=== PATIENT | male | born 1985 | race Caucasian/White ===

== ENCOUNTER 2018-02-27 23:52 | Inpatient (IN) | payer OTHER ==
[2018-02-28] MEDS ORDERED: NORMAL SALINE 1000 ML 1,000 ML IV ONE (00:02)
[2018-02-28] MEDS ORDERED: ETOMIDATE INJ/PF 20 MG/10 ML SDV IV ONE (00:02)
[2018-02-28] MEDS ORDERED: SUCCINYLCHOLINE CHLORIDE INJ 200 MG/10 ML VIAL IV ONE (00:02)
[2018-02-28] MEDS ORDERED: PROPOFOL 1,000 MG/100 ML INFUS..BTL IV PRN (00:02)
[2018-02-28] MEDS ORDERED: PROPOFOL 1,000 MG/100 ML INFUS..BTL IV ONE (00:04)
[2018-02-28 00:07] LABS: ABSOLUTE BASOPHILS # (AUTO) 0.1 10^3/uL (0.0-0.2); ABSOLUTE EOSINOPHILS # (AUTO) 0.1 10^3/uL (0.0-0.6); ABSOLUTE LYMPHOCYTES (AUTO) 1.9 10^3/uL (0.5-4.7); ABSOLUTE MONOCYTES (AUTO) 0.7 10^3/uL (0.1-1.4); ABSOLUTE NEUT (AUTO) 8.5 10^3/uL (1.7-8.2); BASOPHILS % (AUTO) 0.5 % (0-2); EOSINOPHILS % (AUTO) 0.9 % (0-6); HEMATOCRIT 41.2 % (37.9-51.0); LYMPHOCYTES % (AUTO) 17.1 % (13-45); MEAN CORPUSCULAR HEMOGLOBIN 31.7 pg (27.0-33.4); MEAN CORPUSCULAR VOLUME 93 fl (80-97); MONOCYTES % (AUTO) 5.9 % (3-13); PLATELET COUNT 252 10^3/uL (150-450); RED BLOOD COUNT 4.43 10^6/uL (4.35-5.55); RED CELL DISTRIBUTION WIDTH 14.5 % (11.5-14.0); SEGMENTED NEUTROPHILS % (AUTO) 75.6 % (42-78); TOTAL CELLS COUNTED % (AUTO) 100 %; WHITE BLOOD COUNT 11.2 10^3/uL (4.0-10.5)
[2018-02-28] MEDS ORDERED: MIDAZOLAM 2 MG/2 ML INJ ONE (00:14)
[2018-02-28 00:24] LABS: ALBUMIN 4.3 g/dL (3.5-5.0); ALKALINE PHOSPHATASE 42 U/L (38-126); ANION GAP 18 (5-19); ASPARTATE AMINO TRANSFERASE 67 U/L (17-59); BLOOD UREA NITROGEN 13 mg/dL (7-20); CALCIUM 8.7 mg/dL (8.4-10.2); CARBON DIOXIDE 24 mmol/L (22-30); CHLORIDE 104 mmol/L (98-107); GLUCOSE 139 mg/dL (75-110); POTASSIUM 4.4 mmol/L (3.6-5.0); SODIUM 145.5 mmol/L (137-145)
[2018-02-28 00:25] LABS: ACETAMINOPHEN 32 ug/mL (10-30); ALANINE AMINOTRANSFERASE 44 U/L (21-72); ALCOHOL 159 mg/dL (NONE DETECTED); BILIRUBIN,DIRECT 0.3 mg/dL (0.0-0.4); BILIRUBIN,TOTAL 0.4 mg/dL (0.2-1.3); TOTAL PROTEIN 7.1 g/dL (6.3-8.2)
[2018-02-28 00:26] LABS: SALICYLATE < 1.0 mg/dL (2.0-20.0)
--- NOTE | 2018-02-28 00:32 | ER Document Report ---
ED General - General Chief Complaint: Overdose Stated Complaint: UNRESPONSIVE Time Seen by Provider: 02/28/18 00:01 Notes: Patient is 32-year-old male who presents with complaint of overdose. He is found apneic at his house next to the pill bottle. He is prescribed Klonopin is some crust right powder around the bottle. The suspect he probably is a Klonopin overdose. They are unsure if this potential narcotic overdose as well this patient did have some pinpoint pupils. He was given at approximately 6 mg of Narcan total. This just caused him to wake up a little bit where he is moaning but otherwise is still requiring bag mask ventilation. He said he did vomit once in the ambulance. On arrival patient is poorly responsive and requiring bag mask ventilation. When we take away manual ventilation and place him on supplemental oxygen his oxygen saturation goes quickly into the 80s and therefore we continue manual ventilation. I am able to to get the patient wants to somewhat bone his name but otherwise he cannot tell me anything else and immediately closes his eyes and goes back to being unresponsive. Pupils on my initial exam are 4 and equal and reactive. - Related Data Allergies/Adverse Reactions: No Known Allergies Allergy (Verified 02/28/18 00:36) Past Medical History - Social History Smoking Status: Unknown if Ever Smoked Frequency of alcohol use: unknown Drug Abuse: Other - unknown Family History: Reviewed & Not Pertinent Review of Systems - Review of Systems -: Yes ROS unobtainable due to patient's medical condition - Patient is unresponsive. Physical Exam - Vital signs Vitals: Resp Pulse Ox 11 L 89 L 02/27/18 23:54 02/27/18 23:54 - Notes Notes: General Appearance: Unresponsive. I can get the patient to wake up just enough to barely mumble his name and then he goes back to being unresponsive. Vitals: reviewed, See vital signs table. Head: no swelling or tenderness to the head Eyes: PERRL, EOMI, Conjuctiva clear Mouth: No decreasd moisture Throat: No tonsillar inflammation, No airway obstruction, Neck: Supple, no neck tenderness, Lungs: No wheezing, No rales, No rhonci, No accessory muscle use, good air exchange bilaterally. Heart: Normal rate, Regular rythm, No murmur, no rub Abdomen: Normal BS, soft, No rigidity, No abdominal tenderness, No guarding, no rebound, no abdominal masses, no organomegaly Extremities: good pulses in all extremities, no swelling or tenderness in the extremities, no edema. Skin: warm, dry, appropriate color, no rash Neuro: Patient will wake with strong sternal rub just enough to barely tell me his name and then he goes back to being unresponsive. Pupils are equal and reactive. She will move his arms just slightly. He will move his legs just slightly. He is very sedated from his overdose. He is taking some breaths on his own but they are shallow Course - Re-evaluation Re-evalutation: 02/28/18 00:58 I advanced the ET tube to 25 cm at the lip. I have ordered a repeat chest x- ray and called x-ray to comes to the repeat chest x-ray. 02/28/18 01:26 Patient is appropriate positioning of ET tube. I suspect the patient is a Klonopin overdose based on his history. Tylenol level is only 32. I did order a repeat Tylenol level at 3 AM. I did inform the hospitalist of the repeat level that has been ordered. I did speak with hospitalist about admission for the patient's overdose. He agrees to evaluate the patient for admission. Patient otherwise is vitally stable on the vent. - Vital Signs Vital signs: Temp Pulse Resp BP Pulse Ox 18 133/79 H 100 02/28/18 00:12 02/28/18 00:12 02/28/18 00:12 - Laboratory Result Diagrams: 02/27/18 23:57 02/27/18 23:57 Laboratory results interpreted by me: 02/27/18 02/27/18 23:57 23:57 WBC 11.2 H RDW 14.5 H Absolute Neutrophils 8.5 H Sodium 145.5 H Creatinine 1.47 H Est GFR (Non-Af Amer) 55 L Glucose 139 H AST 67 H Salicylates < 1.0 L Acetaminophen 32 H - EKG Interpretation by Me Additional EKG results interpreted by me: 02/28/18 00:31 EKG is reviewed and interpreted by me. EKG shows sinus rhythm with a rate of [address] segment elevation or depression. No ischemic T-wave inversions. MO interval, QRS duration are within normal range. QTc interval is borderline. No old EKG available for comparison. Procedures - Intubation Orotracheal Airway evaluation: Normal anatomy Mallampati Classification: Class 1 Medications: Etomidate, Succinylcholine Intubation method: Orotracheal Blade type: Edgardo Blade size: 4 Equipment used: Glidescope ETT size: 7.5 ETT secured at (cm): 23 Breath Sounds after Intubation: Equal End tidal CO2 confirmed: Yes Critical Care Note - Critical Care Note Total time excluding time spent on procedures (mins): 40 Comments: Critical care time for this patient not including time spent on procedures approximately 40 minutes due to frequent re-evaluations, management of ventilator, management of sedation. Discharge - Discharge Clinical Impression: Overdose Qualifiers: Encounter type: initial encounter Injury intent: intentional self-harm Qualified Code(s): T50.902A - Poisoning by unspecified drugs, medicaments and biological substances, intentional self-harm, initial encounter Respiratory failure Qualifiers: Chronicity: acute Respiratory failure complication: hypoxia Qualified Code(s): J96.01 - Acute respiratory failure with hypoxia Condition: Serious Disposition: ADMITTED INPATIENT Admitting Provider: Hospitalist Unit Admitted: ICU
--- NOTE | 2018-02-28 00:42 | RADIOLOGY REPORT (SQ) ---
EXAM DESCRIPTION: XR CHEST 1 VIEW COMPLETED DATE/TME: 02/28/2018 00:13 CLINICAL HISTORY: post intubation COMPARISON: None. FINDINGS: Single frontal view of the chest. Endotracheal tube with tip at the level of the clavicles 8.5 cm above the patrica. Leads overlie the chest. NG tube with tip below the diaphragm. Cardiac mediastinal silhouette has normal size and contour. Low lung volumes. Bilateral perihilar interstitial opacities. No pneumothorax or large effusion. No acute osseous abnormalities. Upper abdominal soft tissues are unremarkable. IMPRESSION: 1. Endotracheal tube with tip 8.5 cm above the patrica just at the level of the clavicles. 2. Mild bilateral perihilar interstitial opacities.
[2018-02-28 01:42] LABS: APPEARANCE,URINE CLEAR; BILIRUBIN,URINE NEGATIVE (NEGATIVE); COLOR,URINE YELLOW; GLUCOSE, URINE 50 mg/dL (NEGATIVE); KETONES,URINE NEGATIVE (NEGATIVE); LEUKOCYTE ESTERASE,URINE NEGATIVE (NEGATIVE); NITRITE,URINE NEGATIVE (NEGATIVE); PROTEIN,URINE NEGATIVE (NEGATIVE); UROBILINOGEN,URINE NEGATIVE mg/dL (<2.0)
[2018-02-28 01:45] LABS: URINE AMPHETAMINES SCREEN NEGATIVE; URINE BARBITURATES SCREEN NEGATIVE; URINE BENZODIAZEPINES SCREEN NEGATIVE; URINE COCAINE SCREEN NEGATIVE; URINE MARIJUANA (THC) SCREEN NEGATIVE; URINE METHADONE SCREEN NEGATIVE; URINE PHENCYCLIDINE SCREEN NEGATIVE
--- NOTE | 2018-02-28 01:46 | RADIOLOGY REPORT (SQ) ---
EXAM DESCRIPTION: XR CHEST 1 VIEW COMPLETED DATE/TME: 02/28/2018 00:57 CLINICAL HISTORY: ET tube repositioning COMPARISON: 02/28/2018 FINDINGS: Single frontal view of the chest. Endotracheal tube with tip at the level of the clavicles 6 cm above the patrica. Leads overlie the chest. NG tube with tip below the diaphragm. Cardiomediastinal silhouette has normal size and contour. Low lung volumes. Bilateral perihilar interstitial opacities. No pneumothorax or large effusion. No acute osseous abnormalities. Upper abdominal soft tissues are unremarkable. IMPRESSION: 1. Endotracheal tube with tip 6.0 cm above the patrica. Otherwise stable appearance of the chest. Electronically signed by: Christian Ozuna 02/28/2018 12:45
[2018-02-28] MEDS: NORMAL SALINE 1000 ML 1,000 ML IV PRN ×3 (05:11→18:44)
[2018-02-28] MEDS: PROPOFOL 1,000 MG/100 ML INFUS..BTL IV PRN ×7 (06:53→23:51)
--- NOTE | 2018-02-28 08:04 | PDOC H&P ---
History of Present Illness Admission Date/PCP: 02/28/18 01:30 Patient complains of: Unresponsive. History of Present Illness: SHILOH VINSON is a 32 year old male with complaint of overdose. He is found apneic at his house next to the pill bottle. He is prescribed Klonopin is some crust right powder around the bottle, suspected cause of patients overdose. They are unsure if this potential narcotic overdose as well this patient did have some pinpoint pupils. He was given at approximately 6 mg of Narcan total. This just caused him to wake up a little bit where he is moaning but otherwise is still requiring bag mask ventilation. He said he did vomit once in the ambulance. On arrival patient is poorly responsive and requiring bag mask ventilation. When we take away manual ventilation and place him on supplemental oxygen his oxygen saturation goes quickly into the 80s and therefore we continue manual ventilation. Patient continues to become lethargic and unresponsive at which point patient was intubated in the ER. Past Medical History Medical History: None Psychiatric Medical History: Reports: Depression Social History Information Source: [facility] Records Lives with: Family Smoking Status: Former Smoker Frequency of Alcohol Use: Heavy Hx Recreational Drug Use: No Hx Prescription Drug Abuse: No Family History Family History: Reviewed & Not Pertinent Parental Family History Reviewed: Yes Children Family History Reviewed: Yes Sibling(s) Family History Reviewed.: Yes Medication/Allergy Allergies/Adverse Reactions: No Known Allergies Allergy (Verified 02/28/18 00:36) Review of Systems ROS unobtainable: Due to endotracheal tube, Due to mental status Physical Exam Vital Signs: Temp Pulse Resp BP Pulse Ox 97.6 F 78 12 117/46 L 99 02/28/18 05:07 02/28/18 05:07 02/28/18 06:13 02/28/18 06:13 02/28/18 06:13 Intake & Output 02/27/18 02/28/18 03/01/18 06:59 06:59 06:59 Intake Total 1000 Output Total 350 Balance 650 Weight 94 kg General appearance: PRESENT: no acute distress Exam: Unresponsive, intubated, sedated, in no acute distress Head exam: PRESENT: atraumatic Eye exam: PRESENT: PERRLA Mouth exam: PRESENT: dry mucosa Respiratory exam: PRESENT: clear to auscultation kelley, other - Ventilator Cardiovascular exam: PRESENT: +S1, +S2, tachycardia Pulses: PRESENT: +2 pedal pulses bilateral Neurological exam: PRESENT: altered, other - Sedated Skin exam: PRESENT: abrasion Results Laboratory Results: 02/28/18 05:19 Troponin I 0.014 Impressions: Chest X-Ray 02/28/18 00:57 IMPRESSION: 1. Endotracheal tube with tip 6.0 cm above the patrica. Otherwise stable appearance of the chest. Assessment & Plan - Diagnosis (1) Overdose Qualifiers: Encounter type: initial encounter Injury intent: intentional self-harm Qualified Code(s): T50.902A - Poisoning by unspecified drugs, medicaments and biological substances, intentional self-harm, initial encounter (2) Respiratory failure Qualifiers: Chronicity: acute Respiratory failure complication: hypoxia Qualified Code(s): J96.01 - Acute respiratory failure with hypoxia Plan: Currently intubated, sedated, resting in the intensive care unit. O2 50% with PEEP of 5 and tidal volume 450. On diprivan 50mcg/kg/min. Is making urine. Will continue to monitor with telemetry. Maintain IVF overnight. Repeat CBC, BMP in am. Consider poison control intervention if no improvement in patients condition. Wean off ventilator as tolerated. Will continue to monitor closely and adjust accordingly. - Time Critical Time spent with patient: 35 or more minutes Medications reviewed and adjusted accordingly: Yes Anticipated discharge: Home
--- NOTE | 2018-02-28 08:33 | EKG REPORT ---
SEVERITY:- BORDERLINE ECG - SINUS RHYTHM BORDERLINE PROLONGED QT INTERVAL : Confirmed by: Robb Bonner 28-Feb-2018 08:32:23
[2018-02-28] MEDS ORDERED: SUCCINYLCHOLINE CHLORIDE INJ 200 MG/10 ML VIAL ONE (09:14)
[2018-02-28] MEDS ORDERED: LORAZEPAM INJ 2 MG/1 ML VIAL ONE ×2 (10:51→14:32)
[2018-02-28] MEDS: ENOXAPARIN SODIUM INJ 40 MG/0.4 ML DISP.SYRIN SUBCUT SCH (10:55)
[2018-02-28] MEDS: LORAZEPAM INJ 2 MG/1 ML VIAL IV PRN ×2 (10:55→12:55)
[2018-02-28 11:27] LABS: ARTERIAL BLOOD BASE EXCESS -0.1 mmol/L; ARTERIAL BLOOD H2CO3 1.41 mmol/L (1.05-1.35); ARTERIAL BLOOD HCO3 25.8 mmol/L (20-26); ARTERIAL BLOOD O2 SATURATION 97.5 % (94-98); ARTERIAL BLOOD PCO2 46.7 mmHg (35-45); ARTERIAL BLOOD PH 7.36 (7.35-7.45); ARTERIAL BLOOD PO2 102.7 mmHg (80-100); ARTERIAL BLOOD TOTAL CO2 27.2 mmol/L (23-27)
[2018-02-28 11:30] LABS: ARTERIAL BLOOD FIO2 40%
[2018-02-28 11:51] LABS: INTERNATIONAL RATION (INR) 1.16; PARTIAL THROMBOPLASTIN TIME 26.1 SEC (23.5-35.8); PROTHROMBIN TIME 15.4 SEC (11.4-15.4)
[2018-02-28 12:07] LABS: ABSOLUTE BASOPHILS # (AUTO) 0.1 10^3/uL (0.0-0.2); ABSOLUTE EOSINOPHILS # (AUTO) 0.1 10^3/uL (0.0-0.6); ABSOLUTE LYMPHOCYTES (AUTO) 1.4 10^3/uL (0.5-4.7); ABSOLUTE MONOCYTES (AUTO) 0.6 10^3/uL (0.1-1.4); ABSOLUTE NEUT (AUTO) 9.8 10^3/uL (1.7-8.2); BASOPHILS % (AUTO) 0.4 % (0-2); EOSINOPHILS % (AUTO) 0.9 % (0-6); HEMATOCRIT 40.4 % (37.9-51.0); HEMOGLOBIN 13.9 g/dL (13.5-17.0); MEAN CORPUSCULAR HEMOGLOBIN 31.8 pg (27.0-33.4); MEAN CORPUSCULAR HGB CONC 34.3 g/dL (32.0-36.0); MEAN CORPUSCULAR VOLUME 93 fl (80-97); MONOCYTES % (AUTO) 4.7 % (3-13); PLATELET COUNT 220 10^3/uL (150-450); RED BLOOD COUNT 4.36 10^6/uL (4.35-5.55); RED CELL DISTRIBUTION WIDTH 14.2 % (11.5-14.0); TOTAL CELLS COUNTED % (AUTO) 100 %; WHITE BLOOD COUNT 11.9 10^3/uL (4.0-10.5)
[2018-02-28 12:16] LABS: TROPONIN I < 0.012 ng/mL
[2018-02-28 12:52] LABS: ALANINE AMINOTRANSFERASE 45 U/L (21-72); ALBUMIN 3.7 g/dL (3.5-5.0); ALKALINE PHOSPHATASE 47 U/L (38-126); ANION GAP 13 (5-19); ASPARTATE AMINO TRANSFERASE 63 U/L (17-59); BILIRUBIN,DIRECT 0.3 mg/dL (0.0-0.4); BILIRUBIN,TOTAL 0.6 mg/dL (0.2-1.3); BLOOD UREA NITROGEN 13 mg/dL (7-20); CALCIUM 8.5 mg/dL (8.4-10.2); CARBON DIOXIDE 24 mmol/L (22-30); CHLORIDE 107 mmol/L (98-107); CREATINE KINASE 1545 U/L (55-170); GLUCOSE 67 mg/dL (75-110); POTASSIUM 4.3 mmol/L (3.6-5.0); SODIUM 144.1 mmol/L (137-145); TOTAL PROTEIN 6.4 g/dL (6.3-8.2)
--- NOTE | 2018-02-28 14:25 | PSYCHOLOGICAL NOTE ---
Psych Note - Psych Note Psych Note: Reason for Consult: Suspected intentional Overdose SHILOH VINSON is a 32 year old male with complaint of overdose. He is found apneic at his house next to the pill bottle. He is prescribed Klonopin that had some crushed powder around the bottle, suspected cause of patients overdose. Patient is currently intubated. Please contact the behavioral health team when extubating for evaluation and possible IVC paperwork.
[2018-02-28] MEDS: ACETAMINOPHEN SOLN 325 MG/10.15 ML UDCUP NG PRN ×2 (14:59→18:44)
[2018-02-28] MEDS: LORAZEPAM 24 MG/ D5W 240 ML IV PRN ×3 (15:00→22:44)
[2018-02-28 15:58] LABS: APPEARANCE,URINE SLIGHTLY-CLOUDY; BILIRUBIN,URINE NEGATIVE (NEGATIVE); COLOR,URINE YELLOW; GLUCOSE, URINE NEGATIVE (NEGATIVE); KETONES,URINE 20 mg/dL (NEGATIVE); LEUKOCYTE ESTERASE,URINE NEGATIVE (NEGATIVE); NITRITE,URINE NEGATIVE (NEGATIVE); PROTEIN,URINE NEGATIVE (NEGATIVE); URINE SPECIFIC GRAVITY 1.024; UROBILINOGEN,URINE NEGATIVE mg/dL (<2.0)
[2018-02-28] MEDS ORDERED: CEFTRIAXONE 1 GM/D5W RTU 1 GM/50 ML RTUPB IV SCH (19:00)
[2018-02-28] MEDS: CEFTRIAXONE SODIUM 1,000 MG in NORMAL SALINE 50 ML IV SCH (20:54)
[2018-02-28] MEDS: PANTOPRAZOLE SODIUM 40 MG VIAL IV SCH (21:20)
[2018-02-28 22:47] LABS: ARTERIAL BLOOD BASE EXCESS 0.9 mmol/L; ARTERIAL BLOOD H2CO3 1.43 mmol/L (1.05-1.35); ARTERIAL BLOOD HCO3 26.8 mmol/L (20-26); ARTERIAL BLOOD O2 SATURATION 96.4 % (94-98); ARTERIAL BLOOD PCO2 47.6 mmHg (35-45); ARTERIAL BLOOD PH 7.37 (7.35-7.45); ARTERIAL BLOOD PO2 88.2 mmHg (80-100); ARTERIAL BLOOD TOTAL CO2 28.2 mmol/L (23-27)
[2018-02-28 22:51] LABS: ARTERIAL BLOOD FIO2 30%
[2018-03-01] MEDS: NORMAL SALINE 1000 ML 1,000 ML IV PRN ×4 (01:34→22:30)
[2018-03-01] MEDS: PROPOFOL 1,000 MG/100 ML INFUS..BTL IV PRN ×8 (01:35→23:54)
[2018-03-01] MEDS: LORAZEPAM 24 MG/ D5W 240 ML IV PRN ×6 (03:18→23:54)
[2018-03-01 04:20] LABS: ABSOLUTE EOSINOPHILS # (AUTO) 0.2 10^3/uL (0.0-0.6); ABSOLUTE LYMPHOCYTES (AUTO) 1.5 10^3/uL (0.5-4.7); ABSOLUTE MONOCYTES (AUTO) 0.4 10^3/uL (0.1-1.4); ABSOLUTE NEUT (AUTO) 7.5 10^3/uL (1.7-8.2); BASOPHILS % (AUTO) 0.5 % (0-2); EOSINOPHILS % (AUTO) 1.8 % (0-6); HEMATOCRIT 38.4 % (37.9-51.0); HEMOGLOBIN 13.4 g/dL (13.5-17.0); LYMPHOCYTES % (AUTO) 15.1 % (13-45); MEAN CORPUSCULAR HEMOGLOBIN 32.1 pg (27.0-33.4); MEAN CORPUSCULAR HGB CONC 34.9 g/dL (32.0-36.0); MEAN CORPUSCULAR VOLUME 92 fl (80-97); MONOCYTES % (AUTO) 4.4 % (3-13); PLATELET COUNT 199 10^3/uL (150-450); RED BLOOD COUNT 4.18 10^6/uL (4.35-5.55); RED CELL DISTRIBUTION WIDTH 14.2 % (11.5-14.0); SEGMENTED NEUTROPHILS % (AUTO) 78.2 % (42-78); TOTAL CELLS COUNTED % (AUTO) 100 %; WHITE BLOOD COUNT 9.6 10^3/uL (4.0-10.5)
[2018-03-01 04:44] LABS: ALANINE AMINOTRANSFERASE 31 U/L (21-72); ALBUMIN 3.1 g/dL (3.5-5.0); ALKALINE PHOSPHATASE 47 U/L (38-126); ANION GAP 8 (5-19); ASPARTATE AMINO TRANSFERASE 48 U/L (17-59); BILIRUBIN,DIRECT 0.3 mg/dL (0.0-0.4); BILIRUBIN,TOTAL 0.4 mg/dL (0.2-1.3); BLOOD UREA NITROGEN 9 mg/dL (7-20); CALCIUM 8.3 mg/dL (8.4-10.2); CARBON DIOXIDE 27 mmol/L (22-30); CHLORIDE 110 mmol/L (98-107); GLUCOSE 89 mg/dL (75-110); POTASSIUM 4.2 mmol/L (3.6-5.0); SODIUM 144.5 mmol/L (137-145); TOTAL PROTEIN 5.8 g/dL (6.3-8.2); TRIGLYCERIDES 110 mg/dL (<150)
[2018-03-01] MEDS: PANTOPRAZOLE SODIUM 40 MG VIAL IV SCH ×2 (09:23→21:14)
[2018-03-01] MEDS: ENOXAPARIN SODIUM INJ 40 MG/0.4 ML DISP.SYRIN SUBCUT SCH (09:24)
[2018-03-01] MEDS: ACETAMINOPHEN SOLN 325 MG/10.15 ML UDCUP NG PRN ×2 (10:39→14:42)
--- NOTE | 2018-03-01 12:09 | CONSULTATION REPORT E ---
Consultation Report NAME: SHILOH VINSON : 1985 AGE: 32Y DATE: 02/28/2018 610 A TO: JAKE COLE M.D. FROM: CAMI MARIE M.D. Requesting Physician REASON FOR CONSULTATION: The patient is a 32-year-old male who came in with altered mental status. When the patient was seen at his house, next to a pill bottle which contains Klonopin. Suspected patient overdose. The patient was given 6 mg of Narcan total, which seemed to wake up the patient. The patient had vomiting several times when the patient arrived in the Emergency Room. The patient was poorly responsive and requiring ambubagging. The patient was subsequently endotracheally intubated and mechanically ventilated in the Emergency Room. PAST MEDICAL HISTORY: Depression. SOCIAL HISTORY: Lives with family. Former heavy smoker. Heavy alcohol use. Denies illicit drug use. FAMILY HISTORY: Reviewed but not pertinent. ALLERGIES: No known drug allergies. REVIEW OF SYSTEMS: Unknown. The patient is sedated and mechanically ventilated. PHYSICAL EXAMINATION: GENERAL: The patient appeared sedated, afebrile, and not in apparent respiratory distress. VITAL SIGNS: Temperature 98.2 with a T-max of 101.1, heart rate of 93, respiration is 14, the saturation is 100% on 30% FiO2, SIMV rate of 14, tidal volume of 450 mL, pressure support of 10, PEEP of 5. EYES: No jaundice or pallor. EARS, NOSE, AND THROAT: No ear drainage. No nasal discharge. Endotracheal tube in place. CHEST AND LUNGS: No wheezing. No rhonchi. No coarse crackles. CARDIOVASCULAR: S1 and S2 distinct. Normal rate, regular rhythm. ABDOMEN: Flabby, positive bowel sounds, soft, nondistended, nontender. EXTREMITIES: No joint swelling and no cellulitis. ASSESSMENT: 1. Overdose, most likely Klonopin. 2. History of depression. PLAN/RECOMMENDATION: 1. We will continue invasive mechanical ventilation. 2. We will do an ABG today to determine whether we have to change the current ventilator settings. The current ventilator settings has a low tidal volume and a low ventilatory rate. I suspect patient may have respiratory acidosis but we will evaluate after the ABG and make further ventilator adjustments. 3. We will consider weaning of the patient tomorrow and hopefully determine whether the patient can blood work extubated or not. DICTATING PHYSICIAN: JAKE COLE MD,KAYY,MPH [id number] PHY#: [id number] ID: [id number] JOB#: [id number] ACCT: [id number] cc:JAKE COLE M.D. > [facility]
--- NOTE | 2018-03-01 13:55 | PDOC PROGRESS REPORT ---
Subjective Progress Note for:: 03/01/18 Subjective:: YOSI VINSON is a 32 year old male with complaint of overdose. He is found apneic at his house next to the pill bottle. He is prescribed Klonopin is some crust right powder around the bottle, suspected cause of patients overdose. They are unsure if this potential narcotic overdose as well this patient did have some pinpoint pupils. He was given at approximately 6 mg of Narcan total. This just caused him to wake up a little bit where he is moaning but otherwise is still requiring bag mask ventilation. He said he did vomit once in the ambulance. On arrival patient is poorly responsive and requiring bag mask ventilation. When we take away manual ventilation and place him on supplemental oxygen his oxygen saturation goes quickly into the 80s and therefore we continue manual ventilation. Patient continues to become lethargic and unresponsive at which point patient was intubated in the ER. Patient remains intubated and on mechanical ventilation. He has been seen by shoe packer as well as psychiatrist although follow-up evaluation will have to be done by psychiatrist once is awake. There is also a history of alcohol use as per mother and patient drinks every day hence he is on benzodiazepine continuous infusion. Reason For Visit: DRUG OD,INTUBATED Physical Exam Vital Signs: Temp Pulse Resp BP Pulse Ox 100.6 F H 107 H 21 H 119/95 H 91 L 03/01/18 13:43 03/01/18 13:43 03/01/18 13:43 03/01/18 13:43 03/01/18 13:43 Intake & Output 02/28/18 03/01/18 03/02/18 06:59 06:59 06:59 Intake Total 1077 4380 1646 Output Total 350 3785 1375 Balance 727 595 271 Weight 94 kg 95.9 kg General appearance: PRESENT: no acute distress, well-developed, well-nourished, other - Intubated Head exam: PRESENT: atraumatic, normocephalic Eye exam: PRESENT: conjunctiva pink, PERRLA. ABSENT: scleral icterus Ear exam: PRESENT: normal external ear exam Neck exam: ABSENT: carotid bruit, JVD, lymphadenopathy, thyromegaly Respiratory exam: PRESENT: clear to auscultation kelley. ABSENT: rales, rhonchi, wheezes Cardiovascular exam: PRESENT: RRR, +S1, +S2. ABSENT: diastolic murmur, rubs, systolic murmur Pulses: PRESENT: normal dorsalis pedis pul Vascular exam: PRESENT: normal capillary refill GI/Abdominal exam: PRESENT: normal bowel sounds, soft. ABSENT: distended, guarding, mass, organolmegaly, rebound, tenderness Rectal exam: PRESENT: deferred Extremities exam: ABSENT: calf tenderness, clubbing, pedal edema Neurological exam: PRESENT: other - Sedated. ABSENT: motor sensory deficit Psychiatric exam: PRESENT: other - Unable to evaluate. ABSENT: homicidal ideation, suicidal ideation Skin exam: PRESENT: dry, intact. ABSENT: cyanosis, rash Results Laboratory Results: 03/01/18 04:08 03/01/18 04:08 02/28/18 02/28/18 03/01/18 15:20 22:35 04:08 WBC 9.6 RBC 4.18 L Hgb 13.4 L Hct 38.4 MCV 92 MCH 32.1 MCHC 34.9 RDW 14.2 H Plt Count 199 Seg Neutrophils % 78.2 H Lymphocytes % 15.1 Monocytes % 4.4 Eosinophils % 1.8 Basophils % 0.5 Absolute Neutrophils 7.5 Absolute Lymphocytes 1.5 Absolute Monocytes 0.4 Absolute Eosinophils 0.2 Absolute Basophils 0.0 Carbonic Acid 1.43 H HCO3/H2CO3 Ratio 18:1 ABG pH 7.37 ABG pCO2 47.6 H ABG pO2 88.2 ABG HCO3 26.8 H ABG O2 Saturation 96.4 ABG Base Excess 0.9 FiO2 30% Sodium Potassium Chloride Carbon Dioxide Anion Gap BUN Creatinine Est GFR ( Amer) Est GFR (Non-Af Amer) Glucose Calcium Total Bilirubin AST ALT Alkaline Phosphatase Total Protein Albumin Triglycerides Urine Color YELLOW Urine Appearance SLIGHTLY-CLOUDY Urine pH 5.0 Ur Specific [place] 1.024 Urine Protein NEGATIVE Urine Glucose (UA) NEGATIVE Urine Ketones 20 H Urine Blood NEGATIVE Urine Nitrite NEGATIVE Ur Leukocyte Esterase NEGATIVE Urine WBC (Auto) 2 Urine RBC (Auto) 2 03/01/18 04:08 WBC RBC Hgb Hct MCV MCH MCHC RDW Plt Count Seg Neutrophils % Lymphocytes % Monocytes % Eosinophils % Basophils % Absolute Neutrophils Absolute Lymphocytes Absolute Monocytes Absolute Eosinophils Absolute Basophils Carbonic Acid HCO3/H2CO3 Ratio ABG pH ABG pCO2 ABG pO2 ABG HCO3 ABG O2 Saturation ABG Base Excess FiO2 Sodium 144.5 Potassium 4.2 Chloride 110 H Carbon Dioxide 27 Anion Gap 8 BUN 9 Creatinine 0.97 Est GFR ( Amer) > 60 Est GFR (Non-Af Amer) > 60 Glucose 89 Calcium 8.3 L Total Bilirubin 0.4 AST 48 ALT 31 Alkaline Phosphatase 47 Total Protein 5.8 L Albumin 3.1 L Triglycerides 110 Urine Color Urine Appearance Urine pH Ur Specific [place] Urine Protein Urine Glucose (UA) Urine Ketones Urine Blood Urine Nitrite Ur Leukocyte Esterase Urine WBC (Auto) Urine RBC (Auto) 02/28/18 02/28/18 02/28/18 05:19 11:10 11:10 Creatine Kinase 1545 H CK-MB (CK-2) 5.20 H Troponin I 0.014 < 0.012 02/28/18 12:00 Creatine Kinase CK-MB (CK-2) Troponin I Cancelled Impressions: Chest X-Ray 02/28/18 00:57 IMPRESSION: 1. Endotracheal tube with tip 6.0 cm above the patrica. Otherwise stable appearance of the chest. Assessment & Plan - Diagnosis (1) Overdose Qualifiers: Encounter type: subsequent encounter Injury intent: intentional self-harm Qualified Code(s): T50.902D - Poisoning by unspecified drugs, medicaments and biological substances, intentional self-harm, subsequent encounter Is this a current diagnosis for this admission?: Yes Plan: Secondary to Klonopin. Follow-up evaluation by psychiatry when patient improves (2) Respiratory failure Qualifiers: Chronicity: acute Respiratory failure complication: hypoxia Qualified Code(s): J96.01 - Acute respiratory failure with hypoxia Is this a current diagnosis for this admission?: Yes Plan: Continue with mechanical ventilation and wean off as tolerated. Continue with empiric antibiotics. Appreciate pulmonology input (3) ETOH abuse Is this a current diagnosis for this admission?: Yes Plan: Continue with benzodiazepine infusion. Hopefully by the time patient is ready to be extubated he is withdrawal symptoms or period Will have been over - Time Time Spent with patient: 15-24 minutes Medications reviewed and adjusted accordingly: Yes Anticipated discharge: Home Within: within 72 hours - Inpatient Certification Based on my medical assessment, after consideration of the patient's comorbidities, presenting symptoms, or acuity I expect that the services needed warrant INPATIENT care.: Yes Medical Necessity: Need for IV Antibiotics, Other - On mechanical ventilation
[2018-03-01] MEDS: CEFTRIAXONE SODIUM 1,000 MG in NORMAL SALINE 50 ML IV SCH (17:07)
[2018-03-01] MEDS ORDERED: LEVOFLOXACIN 500 MG/D5W RTU 500 MG/100 ML RTUPB IV SCH (22:00)
--- NOTE | 2018-03-01 23:11 | PROGRESS NOTE E ---
Progress Note NAME: SHILOH VINSON : 1985 AGE: 32Y DATE: 03/01/2018 ROOM: [facility] SUBJECTIVE: The patient is a 32-year-old male who came in with acute respiratory failure requiring invasive mechanical ventilation due to drug overdose. The patient was weaned off the sedation this morning but the patient became so agitated that sedation was resumed. The patient was a heavy alcohol drinking according to the patient's family. There was a temperature spike at 1 p.m. today to 100.6, current temperature is 98.4, it was 100 degrees Fahrenheit earlier. The patient is on IV ceftriaxone. Slightly increased yellowish endotracheal tube secretions this morning, according to the patient's nurse. Sputum culture again sent today. He had a sputum culture done yesterday showing a gram-positive cocci. The patient tolerated NG tube feeding. No vomiting, no diarrhea. OBJECTIVE: GENERAL: The patient is sedated, afebrile, not in apparent respiratory distress. VITAL SIGNS: Blood pressure 110/56, temperature of 98.4 with a T-max of 100.6, heart rate of 76, respirations 16, saturation 98% on FiO2 of 45%, SIMV rate of 14, tidal volume 450, pressure support is 14, and PEEP of 5, and FiO2 told to be titrated to keep saturations 91-94%. EYES: No jaundice or pallor. EARS, NOSE, AND THROAT: No ear drainage. No nasal discharge. HEAD AND NECK: No scalp swelling. Neck is supple. CHEST AND LUNGS: No wheezing, no rhonchi, no coarse crackles, no rhonchi noted. CARDIOVASCULAR: S1, S2 is distinct. Normal rate and regular rhythm. ABDOMEN: Flabby, positive bowel sounds., soft, nondistended, nontender. EXTREMITIES: No joint swelling, no cellulitis. LABORATORY DATA: CBC done today showed white count of 9.6, hemoglobin of 13.4, platelet count is 199, no bands noted. Chemistry done today showed sodium 134, potassium 4.2, chloride 110, CO2 is 27, BUN is 9, creatinine 0.97, glucose 89, and calcium is 8.3. Total bilirubin is 0.4, SGOT is 48, SGPT is 31. Total protein is 5.8 and albumin is 3.1. ASSESSMENT: 1. ACUTE RESPIRATORY FAILURE REQUIRING INVASIVE MECHANICAL VENTILATION. 2. DRUG OVERDOSE. 3. FEVER SPIKE TO 100 AND INCREASED ENDOTRACHEAL TUBE SECRETIONS, LOOKS LIKE MORE PURULENCE OR SUBJECTIVE OF POSSIBLE PULMONARY INFECTION OR PNEUMONIA THAT IS NOT DETECTED YET WITH THE CURRENT CHEST X-RAY. We will repeat the sputum culture again. Sputum culture is positive but organism is still to be identified. We will discontinue the Rocephin and we will start the patient on Levaquin which has a broader antimicrobial coverage. I do not think the patient needs an anti-pseudomonal coverage at this time, but we will closely watch the patient. PLAN/RECOMMENDATION: 1. Do a sputum culture tonight. 2. Discontinue the IV Rocephin and change to Levaquin IV 500 mg IV piggyback once daily. 3. We will continue to optimize ventilator support. 4. We will do spontaneous breathing trial again tomorrow after weaning off the sedation and once the patient is fully awake. DICTATING PHYSICIAN: JAKE COLE MD,KAYY,MPH [id number] PHY#: [id number] ID: [id number] JOB#: [id number] ACCT: [id number] cc: > MTDD
[2018-03-02] MEDS: PROPOFOL 1,000 MG/100 ML INFUS..BTL IV PRN ×7 (02:43→21:52)
[2018-03-02 04:25] LABS: ABSOLUTE BASOPHILS # (AUTO) 0.1 10^3/uL (0.0-0.2); ABSOLUTE EOSINOPHILS # (AUTO) 0.1 10^3/uL (0.0-0.6); ABSOLUTE MONOCYTES (AUTO) 0.7 10^3/uL (0.1-1.4); ABSOLUTE NEUT (AUTO) 9.3 10^3/uL (1.7-8.2); BASOPHILS % (AUTO) 0.6 % (0-2); EOSINOPHILS % (AUTO) 0.9 % (0-6); HEMATOCRIT 38.1 % (37.9-51.0); HEMOGLOBIN 13.3 g/dL (13.5-17.0); LYMPHOCYTES % (AUTO) 8.9 % (13-45); MEAN CORPUSCULAR HEMOGLOBIN 32.1 pg (27.0-33.4); MEAN CORPUSCULAR HGB CONC 34.9 g/dL (32.0-36.0); MEAN CORPUSCULAR VOLUME 92 fl (80-97); MONOCYTES % (AUTO) 5.9 % (3-13); PLATELET COUNT 209 10^3/uL (150-450); RED BLOOD COUNT 4.15 10^6/uL (4.35-5.55); RED CELL DISTRIBUTION WIDTH 14.3 % (11.5-14.0); SEGMENTED NEUTROPHILS % (AUTO) 83.7 % (42-78); TOTAL CELLS COUNTED % (AUTO) 100 %; WHITE BLOOD COUNT 11.1 10^3/uL (4.0-10.5)
[2018-03-02 04:36] LABS: ANION GAP 9 (5-19); BLOOD UREA NITROGEN 5 mg/dL (7-20); CALCIUM 8.3 mg/dL (8.4-10.2); CARBON DIOXIDE 27 mmol/L (22-30); CHLORIDE 110 mmol/L (98-107); GLUCOSE 101 mg/dL (75-110); SODIUM 145.7 mmol/L (137-145)
[2018-03-02] MEDS: LORAZEPAM 24 MG/ D5W 240 ML IV PRN ×5 (05:36→20:23)
[2018-03-02] MEDS: NORMAL SALINE 1000 ML 1,000 ML IV PRN ×2 (05:36→19:49)
--- NOTE | 2018-03-02 09:01 | RADIOLOGY REPORT (SQ) ---
EXAM DESCRIPTION: CHEST SINGLE VIEW COMPLETED DATE/TIME: 03/02/2018 6:31 am REASON FOR STUDY: on ventilator COMPARISON: 02/28/2018 NUMBER OF VIEWS: One view. TECHNIQUE: Single frontal radiographic image of the chest acquired. LIMITATIONS: None. FINDINGS: LUNGS AND PLEURA: Subsegmental atelectasis right lower lobe. No pneumothorax. MEDIASTINUM AND HEART: Stable heart size and mediastinal structures. SUPPORT DEVICES: Interval removal of endotracheal tube. NG tube position not significantly changed. BONY STRUCTURES: No acute findings. HARDWARE: None. OTHER: No other significant finding. IMPRESSION: Stable chest status postextubation. Reading location - IP/workstation name: [email or web address]
[2018-03-02] MEDS ORDERED: LEVOFLOXACIN 750 MG/D5W RTU 750 MG/150 ML RTUPB IV ONE (10:00)
[2018-03-02] MEDS: ENOXAPARIN SODIUM INJ 40 MG/0.4 ML DISP.SYRIN SUBCUT SCH (11:16)
[2018-03-02] MEDS: PANTOPRAZOLE SODIUM 40 MG VIAL IV SCH ×2 (11:16→21:30)
--- NOTE | 2018-03-02 18:15 | PDOC PROGRESS REPORT ---
Subjective Progress Note for:: 03/02/18 Subjective:: YOSI VINSON is a 32 year old male with complaint of overdose. He is found apneic at his house next to the pill bottle. He is prescribed Klonopin is some crust right powder around the bottle, suspected cause of patients overdose. They are unsure if this potential narcotic overdose as well this patient did have some pinpoint pupils. He was given at approximately 6 mg of Narcan total. This just caused him to wake up a little bit where he is moaning but otherwise is still requiring bag mask ventilation. He said he did vomit once in the ambulance. On arrival patient is poorly responsive and requiring bag mask ventilation. When we take away manual ventilation and place him on supplemental oxygen his oxygen saturation goes quickly into the 80s and therefore we continue manual ventilation. Patient continues to become lethargic and unresponsive at which point patient was intubated in the ER. Patient remains intubated and on mechanical ventilation. He has been seen by cardiac rehabilitation specialist as well as psychiatrist although follow-up evaluation will have to be done by psychiatrist once is awake. There is also a history of alcohol use as per mother and patient drinks every day hence he is on benzodiazepine continuous infusion. He remains fairly stable on mechanical ventilation and he still is unable to be weaned off the ventilator as he apparently had a lot of sedations and was not able to tolerate weaning trials. Reason For Visit: DRUG OD,INTUBATED Physical Exam Vital Signs: Temp Pulse Resp BP Pulse Ox 98.4 F 75 14 137/85 H 97 03/02/18 15:07 03/02/18 12:00 03/02/18 15:07 03/02/18 15:07 03/02/18 16:00 Intake & Output 03/01/18 03/02/18 03/03/18 06:59 06:59 06:59 Intake Total 4380 6085 927 Output Total 3785 4000 3550 Balance 595 5784 -2879 Weight 95.9 kg 96.9 kg 96.9 kg General appearance: PRESENT: no acute distress, well-developed, well-nourished, other - On mechanical ventilation Head exam: PRESENT: atraumatic, normocephalic Eye exam: PRESENT: conjunctiva pink, PERRLA. ABSENT: scleral icterus Ear exam: PRESENT: normal external ear exam Mouth exam: PRESENT: moist Neck exam: ABSENT: carotid bruit, JVD, lymphadenopathy, thyromegaly Respiratory exam: PRESENT: decreased breath sounds, rhonchi. ABSENT: rales, wheezes Cardiovascular exam: PRESENT: RRR, +S1, +S2. ABSENT: diastolic murmur, rubs, systolic murmur Pulses: PRESENT: normal dorsalis pedis pul Vascular exam: PRESENT: normal capillary refill GI/Abdominal exam: PRESENT: normal bowel sounds, soft. ABSENT: distended, guarding, mass, organolmegaly, rebound, tenderness Rectal exam: PRESENT: deferred Extremities exam: PRESENT: full ROM. ABSENT: calf tenderness, clubbing, pedal edema Neurological exam: PRESENT: other - Sedated. ABSENT: motor sensory deficit Psychiatric exam: PRESENT: other - Unable to evaluate Skin exam: PRESENT: dry, intact, warm. ABSENT: cyanosis, rash Results Laboratory Results: 03/02/18 03:56 03/02/18 03:56 03/02/18 03/02/18 03:56 03:56 WBC 11.1 H RBC 4.15 L Hgb 13.3 L Hct 38.1 MCV 92 MCH 32.1 MCHC 34.9 RDW 14.3 H Plt Count 209 Seg Neutrophils % 83.7 H Lymphocytes % 8.9 L Monocytes % 5.9 Eosinophils % 0.9 Basophils % 0.6 Absolute Neutrophils 9.3 H Absolute Lymphocytes 1.0 Absolute Monocytes 0.7 Absolute Eosinophils 0.1 Absolute Basophils 0.1 Sodium 145.7 H Potassium 4.0 Chloride 110 H Carbon Dioxide 27 Anion Gap 9 BUN 5 L Creatinine 0.89 Est GFR ( Amer) > 60 Est GFR (Non-Af Amer) > 60 Glucose 101 Calcium 8.3 L Magnesium 1.8 02/28/18 15:20 Tracheal Aspirate Gram Stain - Final 02/28/18 15:20 Tracheal Aspirate Sputum Culture - Final Staphylococcus Aureus Greatly Reduced Normal Sophie 02/28/18 15:20 Catheterized Urine Urine Culture - Final NO GROWTH 2 DAYS 02/28/18 02/28/18 02/28/18 05:19 11:10 11:10 Creatine Kinase 1545 H CK-MB (CK-2) 5.20 H Troponin I 0.014 < 0.012 02/28/18 12:00 Creatine Kinase CK-MB (CK-2) Troponin I Cancelled Impressions: Chest X-Ray 03/02/18 05:00 IMPRESSION: Stable chest status postextubation. Assessment & Plan - Diagnosis (1) Respiratory failure Qualifiers: Chronicity: acute Respiratory failure complication: hypoxia Qualified Code(s): J96.01 - Acute respiratory failure with hypoxia Is this a current diagnosis for this admission?: Yes Plan: Continue respiratory support and wean off as tolerated (2) Overdose Qualifiers: Encounter type: subsequent encounter Injury intent: intentional self-harm Qualified Code(s): T50.902D - Poisoning by unspecified drugs, medicaments and biological substances, intentional self-harm, subsequent encounter Is this a current diagnosis for this admission?: Yes Plan: Psych evaluation once stable (3) ETOH abuse Is this a current diagnosis for this admission?: Yes Plan: Continue benzodiazepine drip - Time Time Spent with patient: 15-24 minutes Medications reviewed and adjusted accordingly: Yes Anticipated discharge: Home Within: within 72 hours - Inpatient Certification Based on my medical assessment, after consideration of the patient's comorbidities, presenting symptoms, or acuity I expect that the services needed warrant INPATIENT care.: Yes Medical Necessity: Other - On mechanical ventilation
[2018-03-02] MEDS ORDERED: PIPERACILLIN/TAZOBACTAM 3.375 GM VIAL IV SCH (19:00)
--- NOTE | 2018-03-02 20:06 | PROGRESS NOTE E ---
Progress Note NAME: SHILOH VINSON : 1985 AGE: 32Y DATE: 03/02/2018 ROOM: [facility] SUBJECTIVE: Patient is a 32-year-old male who came in with acute respiratory failure, requiring invasive mechanical ventilation due to drug overdose. Patient spiked a temperature today to 100 degrees Fahrenheit. When patient was very agitated earlier today, patient desaturated to the 70's. The secretions were suctioned. RN said that the secretions are voluminous and purulent. They increased the tidal volume and Ambubagged the patient. This seemed to improve patient's oxygenation. There was no vomiting, no diarrhea noted. Patient was also noted to be very agitated and appeared to be requiring 2 IV sedatives, Ativan and propofol. RN claimed that the patient was just on one, propofol, when patient was agitated and has increased risk of self-extubating. When patient is on propofol and Ativan, patient looked better and calmer. OBJECTIVE: VITAL SIGNS: Currently, patient is sedated, afebrile, not in apparent respiratory distress, with a temperature of 100 degrees Fahrenheit, with a T-max of 100 degrees Fahrenheit. Heart rate is 69 beats per minute, blood pressure is 137/85, respiratory rate is 14, saturation is 97% on 30%. EYES: No jaundice or pallor. EARS, NOSE AND THROAT: No ear drainage. No nasal discharge. HEAD AND NECK: Orotracheal tube is in place. CHEST AND LUNGS: No wheezing, no rhonchi, no coarse crackles. CARDIOVASCULAR: S1, S2 distant. No murmur. Regular rate and rhythm. ABDOMEN: Flabby. Positive bowel sounds. Soft, nondistended. EXTREMITIES: No joint swelling or cellulitis. LABORATORY DATA: CBC done today showed white count of 11.1, hemoglobin of 13.3, hematocrit is 38.1 and platelet count 209,000. ABG done yesterday was 7.3, pH of 7.27, pCO2 of 47.6, pO2 of 88, saturation 96.4. Chemistry done today showed sodium of 145, potassium 4, chloride 110, CO2 of 37, BUN 5, creatinine 0.89. Calcium is 8.3 and magnesium is 1.8. Glucose is 101. Total protein is 5.8, albumin is 3.1. Sputum culture done yesterday showed gram-positive cocci in clusters, organisms still to be identified. Sputum culture done on February 26, 2018 showed Staphylococcus aureus. Chest x-ray done today showed increased infiltrate, right lung base, suspicious for pneumonic process, which is new. Antibiotics were changed from Rocephin to ceftriaxone, and from ceftriaxone to Levaquin yesterday. ASSESSMENT: 1. ACUTE RESPIRATORY FAILURE REQUIRING INVASIVE MECHANICAL VENTILATION. Patient is not ready to be extubated yet. 2. DELIRIUM TREMENS/ALCOHOL WITHDRAWAL. Already on IV Ativan and IV propofol. 3. PNEUMONIA, RIGHT LUNG BASE, WHICH IS NEW. 4. ALTERED MENTAL STATUS WITH DRUG OVERDOSE. 5. HISTORY OF ALCOHOL ABUSE. PLAN/RECOMMENDATIONS: 1. Will do a blood culture today. 2. Will start patient empirically with broad-spectrum antibiotics. 3. Will do CBC, chemistry and chest x-ray again tomorrow. 4. Change the ventilator settings to SIMV with a rate of 18, tidal volume of 500, pressure support of 10, PEEP of 5, FiO2 at 30% and titrate FiO2 to keep saturation 91% to 94%. Tidal volume should be set based on patient's ideal body weight, currently at 80 mL/kg ideal body weight. 5. Will perform ABG in 1 hour after the ventilator change. DICTATING PHYSICIAN: JAKE COLE MD,KAYY,MPH [id number] PHY#: [id number] ID: [id number] JOB#: [id number] ACCT: [id number] cc: > MTDD
[2018-03-02 20:12] LABS: ARTERIAL BLOOD BASE EXCESS 1.5 mmol/L; ARTERIAL BLOOD H2CO3 1.01 mmol/L (1.05-1.35); ARTERIAL BLOOD HCO3 24.4 mmol/L (20-26); ARTERIAL BLOOD O2 SATURATION 95.1 % (94-98); ARTERIAL BLOOD PCO2 33.4 mmHg (35-45); ARTERIAL BLOOD PH 7.48 (7.35-7.45); ARTERIAL BLOOD PO2 68.8 mmHg (80-100); ARTERIAL BLOOD TOTAL CO2 25.5 mmol/L (23-27)
[2018-03-02 20:24] LABS: ARTERIAL BLOOD FIO2 30%
[2018-03-02] MEDS: ACETAMINOPHEN SOLN 325 MG/10.15 ML UDCUP NG PRN (21:30)
[2018-03-02] MEDS: PIPERACILLIN SODIUM/TAZOBACTAM 3.375 GM in NORMAL SALINE 100 ML IV SCH (21:30)
[2018-03-03] MEDS: LORAZEPAM 24 MG/ D5W 240 ML IV PRN ×4 (00:26→16:23)
[2018-03-03] MEDS: PROPOFOL 1,000 MG/100 ML INFUS..BTL IV PRN ×7 (00:26→22:46)
[2018-03-03] MEDS: PIPERACILLIN SODIUM/TAZOBACTAM 3.375 GM in NORMAL SALINE 100 ML IV SCH ×4 (02:05→21:45)
[2018-03-03 04:32] LABS: ABSOLUTE EOSINOPHILS # (AUTO) 0.1 10^3/uL (0.0-0.6); ABSOLUTE MONOCYTES (AUTO) 0.8 10^3/uL (0.1-1.4); ABSOLUTE NEUT (AUTO) 9.3 10^3/uL (1.7-8.2); BASOPHILS % (AUTO) 0.4 % (0-2); EOSINOPHILS % (AUTO) 1.3 % (0-6); HEMATOCRIT 37.1 % (37.9-51.0); HEMOGLOBIN 12.8 g/dL (13.5-17.0); LYMPHOCYTES % (AUTO) 8.6 % (13-45); MEAN CORPUSCULAR HEMOGLOBIN 31.7 pg (27.0-33.4); MEAN CORPUSCULAR HGB CONC 34.5 g/dL (32.0-36.0); MEAN CORPUSCULAR VOLUME 92 fl (80-97); MONOCYTES % (AUTO) 6.9 % (3-13); PLATELET COUNT 211 10^3/uL (150-450); RED BLOOD COUNT 4.03 10^6/uL (4.35-5.55); RED CELL DISTRIBUTION WIDTH 14.1 % (11.5-14.0); SEGMENTED NEUTROPHILS % (AUTO) 82.8 % (42-78); TOTAL CELLS COUNTED % (AUTO) 100 %; WHITE BLOOD COUNT 11.2 10^3/uL (4.0-10.5)
[2018-03-03 04:49] LABS: ANION GAP 13 (5-19); BLOOD UREA NITROGEN 3 mg/dL (7-20); CALCIUM 8.2 mg/dL (8.4-10.2); CARBON DIOXIDE 24 mmol/L (22-30); CHLORIDE 110 mmol/L (98-107); GLUCOSE 110 mg/dL (75-110); POTASSIUM 3.7 mmol/L (3.6-5.0); SODIUM 147.2 mmol/L (137-145)
--- NOTE | 2018-03-03 08:53 | RADIOLOGY REPORT (SQ) ---
EXAM DESCRIPTION: CHEST SINGLE VIEW COMPLETED DATE/TIME: 03/03/2018 7:15 am REASON FOR STUDY: on ventilator COMPARISON: 03/02/2018. EXAM PARAMETERS: NUMBER OF VIEWS: One view. TECHNIQUE: Single frontal radiographic view of the chest acquired. RADIATION DOSE: NA LIMITATIONS: None. FINDINGS: LUNGS AND PLEURA: Right basilar density relatively unchanged. Possible small right pleura l effusion. Left lung clear. MEDIASTINUM AND HILAR STRUCTURES: No masses. Contour normal. HEART AND VASCULAR STRUCTURES: Heart normal in size. Normal vasculature. BONES: No acute findings. HARDWARE: Endotracheal tube with the tip at the level of T2. Difficult to visualize the distal nasog astric tube but probably in the stomach. OTHER: No other significant finding. IMPRESSION: STABLE APPEARANCE OF THE CHEST. LIFE LINES DESCRIBED. TECHNICAL DOCUMENTATION: JOB ID: [id number] [employer]- All Rights Reserved Reading location - IP/workstation name: [email or web address]
[2018-03-03] MEDS: PANTOPRAZOLE SODIUM 40 MG VIAL IV SCH (09:00)
[2018-03-03] MEDS: ENOXAPARIN SODIUM INJ 40 MG/0.4 ML DISP.SYRIN SUBCUT SCH (09:00)
--- NOTE | 2018-03-03 09:31 | PROGRESS NOTE E ---
Progress Note NAME: SHILOH VINSON : 1985 AGE: 32Y DATE: 03/03/2018 ROOM: [facility] SUBJECTIVE: The patient is lying in bed. The patient remains intubated, sedated. The patient has done very poor with his weaning trials. It appears that the patient is alcohol dependent as well as benzodiazepine dependent and is 3 days into his withdrawal. The patient's agitation has increased and I have actually had to increase his Ativan to 6 mg an hour; however, the patient has been afebrile. His blood pressure has been in a good range. The patient is unable to voice any specific concerns at this time. REVIEW OF SYSTEMS: Unobtainable given the patient's intubation. MEDICATIONS: Medications have been reviewed. OBJECTIVE: GENERAL: The patient is a 33-year-old male who is intubated and sedated, does not appear to be distressed. VITAL SIGNS: Temperature is 97.5, pulse 65, respirations 19, blood pressure is 118/74, oxygen saturation is 98% on 30% FiO2. SKIN: Warm and dry. No rash. She is not diaphoretic. HEENT: Pupils equal, round, and reactive to light and accommodation. Conjunctiva is pink. There is no evidence of JVP. CARDIOVASCULAR SYSTEM: Heart is regular. There is no murmur or rub. CHEST: Clear, symmetrical, mechanical. ABDOMEN: Soft. Bowel sounds present. EXTREMITIES: No clubbing, cyanosis, edema. PSYCHIATRIC: Unable to assess. DIAGNOSTICS: Lab values are as follows: Hematology obtained on 03/03/2018: WBC is 11.3, hemoglobin is 12.8, hematocrit is 37.1, platelet count is 211,000. Chemistry obtained on 03/03/2018: Sodium is 147.2, potassium 3.7, chloride is 110, carbon dioxide 24, BUN 3, creatinine is 0.74, glucose 110, calcium is 8.2, magnesium is 1.7. Chest x-ray obtained on 03/03/2018 reveals stable appearance of the chest. ET tube appears to be at a level of T1. Right basilar density is noted. IMPRESSION AND PLAN: 1. POLYPHARMACY OVERDOSE, UNCERTAIN OF THE EXACT MECHANISM. The patient reportedly was found with a bottle of Klonopin, but white residue was noted all over the bottle. The patient was positive for opiates on presentation and was given 6 mg of Narcan with minimal improvement of symptoms. The patient's pupils were completely pinpoint. Will continue to monitor and follow. The patient is going to be followed by Psych. 2. ACUTE HYPOXEMIC RESPIRATORY FAILURE SECONDARY TO NUMBER 1. The patient is on minimal vent settings. Will follow. 3. ALCOHOL DEPENDENCY, CONTINUOUS. Will continue benzodiazepine drip and additionally will coverage the patient with B12 vitamins and follow. 4. BENZODIAZEPINE DEPENDENCY, CONTINUOUS. Will continue benzodiazepine drip. 5. RIGHT LOWER LEG PNEUMONIA, MOST LIKELY AN ASPIRATION DUE TO THE PATIENT'S OVERDOSE STATE. Continue Zosyn and follow. 6. HYPERNATREMIA. The patient is not receiving free water. Will increase the patient's free water flushes with his feedings and follow. DISPOSITION: The patient is a FULL CODE. Pending patient's symptomatology and diagnostic findings, will re-evaluate in the a.m. Time spent on this critical care note including assessment, plan, physical examination, patient education, review of records is 35 minutes. DICTATING PHYSICIAN: JOHN GIVENS NP [id number] PHY#: [id number] ID: [id number] JOB#: [id number] ACCT: [id number] cc: >
--- NOTE | 2018-03-03 11:05 | PSYCHOLOGICAL NOTE ---
Psych Note - Psych Note Psych Note: This clinician spoke to the Retail Project Merchandiser at 9:50am. Patient is still intubated. Please contact the Psych Department when patient is exturbated. Update: 4:20pm: This Clinician spoke to Nurse Mcknight, patient is still intubated. Please contact the Psych Department when patient is exturated.
[2018-03-03] MEDS ORDERED: NORMAL SALINE 1000 ML 1,000 ML with POTASSIUM CHLORIDE 20 MEQ, MAGNESIUM SULFATE 8 MEQ,... IV SCH ×5 (12:00)
[2018-03-03] MEDS ORDERED: NORMAL SALINE 1000 ML 1,000 ML with POTASSIUM CHLORIDE 20 MEQ, MAGNESIUM SULFATE 8 MEQ,... IV ONE ×6 (12:00)
[2018-03-03] MEDS: ACETAMINOPHEN SOLN 325 MG/10.15 ML UDCUP NG PRN (13:51)
[2018-03-03] MEDS ORDERED: VANCOMYCIN HCL INJ 1000 MG VIAL IV SCH (14:30)
--- NOTE | 2018-03-03 15:26 | RADIOLOGY REPORT (SQ) ---
EXAM DESCRIPTION: CHEST SINGLE VIEW COMPLETED DATE/TIME: 03/03/2018 3:13 pm REASON FOR STUDY: after endotracheal tube advanced by 2 cm COMPARISON: 03/03/2018 EXAM PARAMETERS: NUMBER OF VIEWS: One view. TECHNIQUE: Single frontal radiographic view of the chest acquired. RADIATION DOSE: NA LIMITATIONS: None. FINDINGS: LUNGS AND PLEURA: The previously described right basilar density shows interval improvemen t with decreasing confluence. Residual changes are identified. Again there is some blunting of the right costophrenic angle which I cannot exclude is a tiny right pleural effusion. The left lung jessica ins clear. MEDIASTINUM AND HILAR STRUCTURES: No masses. Contour normal. HEART AND VASCULAR STRUCTURES: The configuration of the heart mediastinal structures is unchanged. BONES: No acute findings. HARDWARE: Endotracheal tube is identified with its tip the level of the thoracic inlet. NG tube is s een in course to the abdomen without its tip being identified on this film. OTHER: No other significant finding. IMPRESSION: Endotracheal tube with its tip at the level of the thoracic inlet. Interval improvement in the right basilar density. Other findings as noted above TECHNICAL DOCUMENTATION: JOB ID: [id number] [employer]- All Rights Reserved Reading location - IP/workstation name: [email or web address]
[2018-03-03] MEDS: VANCOMYCIN HCL 1,500 MG in DEXTROSE 5%-WATER 250 ML IV SCH (16:22)
--- NOTE | 2018-03-03 16:41 | PROGRESS NOTE E ---
Progress Note NAME: SHILOH VINSON : 1985 AGE: 32Y DATE: 03/03/2018 ROOM: [facility] SUBJECTIVE: The patient is a 32-year-old male who came in in acute respiratory failure requiring invasive mechanical ventilation and due to drug overdose. The patient has been febrile over the last 24 hours with a temperature of 100.8, had some increased endotracheal tube secretions, able to wean off the sedation, both Ativan and propofol for about an hour or so. The patient is since able to tolerate waking up, unable to tolerate a spontaneous breathing trial at 2 breaths per minute using a FMV of 2. He has increasing endotracheal tube secretions, yellow. Sputum culture done 2 days ago showed gram-negative rods and MRSA. The patient is currently on IV Zosyn. Repeat cultures were done yesterday, and the results are pending. The patient appeared to be still sedated, even off the Ativan and IV propofol for about 2 hours, has a slight fever, not in apparent respiratory distress with a temperature of 100.8 with a temperature maximum of 100.8. OBJECTIVE: VITAL SIGNS: Temperature is 100.8 and pulse rate of 87, blood pressure is 131/79, and the respiration is 18. Saturation is 93% on a FMV rate of 2. Two breaths during his spontaneous breathing trial. Tidal volume of 500. Pressure support of 10/5 and PEEP of 5 on FIO2 35%. EYES: No jaundice or pallor. EARS, NOSE, AND THROAT: No ear drainage. Orotracheal tube is in place. NG tube is in place. CHEST AND LUNGS: No wheezing. No rhonchi. No coarse crackles. CARDIOVASCULAR: S1, S2 are distinct. No murmur, gallop, or rub. ABDOMEN: Flabby, positive bowel sounds, soft, nondistended, nontender. EXTREMITIES: No joint swelling or cellulitis. LABORATORY: CBC done today showed a white count of 11.2, hemoglobin 12.8, hematocrit is 37.1, platelet count is 211,000. Chemistry done today showed sodium 137, potassium 3.7, chloride 111, carbon dioxide 24, BUN 3, and creatinine 7.74. Calcium is 8.2 and glucose 110. Magnesium is 1.7. Again, sputum culture done March 01, 2018, showed MRSA and gram-negative rods, but the MRSA is sensitive to ciprofloxacin and vancomycin. ASSESSMENT: 1. ACUTE RESPIRATORY FAILURE REQUIRING INVASIVE MECHANICAL VENTILATION. AGAIN, THE PATIENT HAS NOT TOLERATED BEING EXTUBATED YET, HAS INCREASED ENDOTRACHEAL TUBE SECRETIONS. 2. FEVER, NEW, WHICH IS PROBABLY DUE TO RIGHT LOWER LOBE PNEUMONIA AND A NEW INFILTRATE IN THE RIGHT LOWER LOBE AND SPUTUM CULTURE POSITIVE FOR MRSA AND GRAM-NEGATIVE RODS AND STAPH AUREUS. 3. PNEUMONIA, RIGHT LOWER LOBE, MRSA AND GRAM-NEGATIVE RODS. CURRENT COVERAGE ON IV ZOSYN AND STARTED IV VANCOMYCIN TODAY. PLAN: 1. We will continue the IV Zosyn. Agree with the discontinuation of IV Levaquin. 2. We will start patient on IV vancomycin today. 3. We will continue to optimize ventilator support. We will consider extubation once the secretions go down and the pneumonia is showing signs of improvement. 4. We will continue IV propofol or IV Ativan to keep patient lightly sedated. We will consider putting the patient on benzodiazepine when we are ready to extubate the patient. Currently, the alcohol withdrawal seems to be not severe. The patient is non-tachycardic, non-diaphoretic, and not agitated. Alcohol withdrawal may be resolving. DICTATING PHYSICIAN: JAKE COLE MD,KAYY,MPH [id number] [id number] PHY#: [id number] ID: [id number] JOB#: [id number] ACCT: [id number] cc:JAKE COLE M.D. > MTDD
[2018-03-04] MEDS: LORAZEPAM 24 MG/ D5W 240 ML IV PRN (01:04)
[2018-03-04] MEDS: PROPOFOL 1,000 MG/100 ML INFUS..BTL IV PRN ×2 (01:04→04:45)
[2018-03-04] MEDS: VANCOMYCIN HCL 1,500 MG in DEXTROSE 5%-WATER 250 ML IV SCH ×3 (01:08→17:10)
[2018-03-04] MEDS: PIPERACILLIN SODIUM/TAZOBACTAM 3.375 GM in NORMAL SALINE 100 ML IV SCH ×4 (03:23→21:12)
[2018-03-04 04:47] LABS: HEMATOCRIT 37.5 % (37.9-51.0); HEMOGLOBIN 13.2 g/dL (13.5-17.0); MEAN CORPUSCULAR HEMOGLOBIN 32.1 pg (27.0-33.4); MEAN CORPUSCULAR HGB CONC 35.2 g/dL (32.0-36.0); MEAN CORPUSCULAR VOLUME 91 fl (80-97); PLATELET COUNT 232 10^3/uL (150-450); RED BLOOD COUNT 4.12 10^6/uL (4.35-5.55); RED CELL DISTRIBUTION WIDTH 14.5 % (11.5-14.0); WHITE BLOOD COUNT 9.4 10^3/uL (4.0-10.5)
[2018-03-04 05:08] LABS: ALANINE AMINOTRANSFERASE 40 U/L (21-72); ALBUMIN 2.8 g/dL (3.5-5.0); ALKALINE PHOSPHATASE 63 U/L (38-126); ANION GAP 11 (5-19); ASPARTATE AMINO TRANSFERASE 30 U/L (17-59); BILIRUBIN,DIRECT 0.3 mg/dL (0.0-0.4); BILIRUBIN,TOTAL 0.5 mg/dL (0.2-1.3); BLOOD UREA NITROGEN 3 mg/dL (7-20); CALCIUM 8.2 mg/dL (8.4-10.2); CARBON DIOXIDE 24 mmol/L (22-30); CHLORIDE 110 mmol/L (98-107); CREATINE KINASE 215 U/L (55-170); GLUCOSE 137 mg/dL (75-110); POTASSIUM 3.4 mmol/L (3.6-5.0); TOTAL PROTEIN 5.6 g/dL (6.3-8.2); TRIGLYCERIDES 104 mg/dL (<150)
--- NOTE | 2018-03-04 08:36 | PROGRESS NOTE E ---
Progress Note NAME: SHILOH VINSON : 1985 AGE: 32Y DATE: 03/04/2018 ROOM: [facility] SUBJECTIVE: The patient is lying in bed. The patient's sedation has been off for about 30 minutes. The patient will awaken. Will cough on command but does easily get into coughing fits with these. He desatted into the 80s even on 100% FiO2; however, the patient is very easily sensitive to the suctioning. Chest x-ray yesterday evening did show some improved aeration. The patient was added vancomycin yesterday. He was already on Zosyn to cover an aspiration given the patient had bibasilar pneumonia on presentation. The patient is unable to voice any concerns at this time. The patient's mother is present at the bedside active in the patient's care. She is aware of the general plan of care. If the patient is indeed extubated today, will have him evaluated by Mental Health at that point and further decision-making as per Pulmonology and Mental Health. BRIEF HISTORY: The patient is a 33-year-old male that presented to the emergency department after being found with a bottle of Klonopin and unknown powdery substance on it. The patient's toxicology screen interestingly enough was positive for opiates but negative for benzodiazepines. The patient did have a serum alcohol level of 159, acetaminophen level of 32. The patient was noted to have bibasilar pneumonia. Was covered with Zosyn and the patient's sputum culture on 02/28/2018 grew out a Staphylococcus aureus; however, repeat culture on 03/01/2018 grew out an Enterobacter as well as an MRSA. The patient has been followed by Pulmonology and Mental Health will evaluate once extubated. REVIEW OF SYSTEMS: Unobtainable. MEDICATIONS: Medications reviewed. OBJECTIVE: GENERAL: The patient is a 33-year-old male who is intubated. His sedation is off. He will follow some basic commands. He does not appear to be distressed. VITAL SIGNS: As follows: Temperature is 97.0, pulse 64, respirations 22, blood pressure is 148/96, oxygen saturation is 100% on 30% FiO2. SKIN: Warm and dry. No rash. He is not diaphoretic. HEENT: Pupils are reactive. Conjunctiva is pink. There is no evidence of JVP. CARDIOVASCULAR SYSTEM: Heart is regular. No rub. CHEST: Clear, symmetrical, unlabored, mechanical. ABDOMEN: Soft, nontender. EXTREMITIES: No clubbing, cyanosis, edema. All 4 extremities are presently warm to the touch. PSYCHIATRIC: Unable to fully assess at this time. DIAGNOSTICS: Lab values are as follows: Hematology obtained on 03/04/2018: WBC is 9.4, hemoglobin is 13.2, hematocrit is 37.5, platelet count is 232,000. Chemistry obtained on 03/04/2018: Sodium is 145, potassium 3.4, chloride is 110, carbon dioxide 24, BUN 3, creatinine is 0.78, glucose 137, calcium is 8.2. AST 30, ALT 40, alkaline phosphatase 63. CK is 215. Total protein .6, albumin 2.8. Triglycerides are 1.4. Sputum culture obtained on 03/01/2018 revealed Enterobacter and MRSA. Repeat sputum obtained on 03/02/2018 is pending. IMPRESSION AND PLAN: 1. POLYPHARMACY OVERDOSE, UNCERTAIN OF THE EXACT MECHANISM. The patient was reportedly found with a bottle of Klonopin with some white residue noted on the bottle. The patient was positive for opiates as well as acetaminophen, alcohol. On presentation the patient was given 6 mg of Narcan without significant improvement Pupils were completely pinpoint and fixed. The patient was unable to protect his airway and was subsequently intubated. Patient will be evaluated again by Psych. 2. ACUTE HYPOXEMIC RESPIRATORY FAILURE SECONDARY TO NUMBER 1. The patient is on minimal vent settings. Do expect extubation this afternoon. 3. ALCOHOL DEPENDENCY, CONTINUOUS. Will go ahead and schedule benzodiazepines at this point. The patient is being covered with B vitamins as well. The patient had an alcohol level on presentation. Has no merle evidence of DTs at this point. Will monitor cautiously. 4. BENZODIAZEPINE DEPENDENCY, CONTINUOUS. Interestingly, the patient's benzodiazepines were negative on presentation. Will monitor. 5. BIBASILAR PNEUMONIA. Culture now positive for MRSA. The patient's initial presentation just revealed a Staph. Vancomycin was added yesterday to Zosyn. 6. HYPERNATREMIA. This was corrected with increased free water, flushes. Will resume a regular diet once the patient is extubated. DISPOSITION: The patient is a FULL CODE. Pending patient's symptomatology and diagnostic findings as well as specialty input, will re-evaluate as needed. ADDENDUM: Patient was extubated without difficulty or hypoxia. Tolerating nasal canula. Nursing to notify Psych for IVC. Time spent on this critical care visit including assessment, plan, physical examination, patient education, review of records and family discussion is 35 minutes. DICTATING PHYSICIAN: JHON GIVENS NP [id number] PHY#: [id number] ID: [id number] JOB#: [id number] ACCT: [id number] cc: > MTDD
[2018-03-04] MEDS ORDERED: LORAZEPAM 1 MG TABLET (TAPER DOSING) PO SCH (09:00)
[2018-03-04] MEDS ORDERED: LORAZEPAM INJ 2 MG/ML VIAL (4 MG PRN DOSE) IV (09:00)
[2018-03-04] MEDS: ENOXAPARIN SODIUM INJ 40 MG/0.4 ML DISP.SYRIN SUBCUT SCH (09:07)
[2018-03-04] MEDS: LORAZEPAM INJ 2 MG/1 ML VIAL (TAPER DOSING) IV SCH ×3 (09:07→21:11)
[2018-03-04] MEDS: FOLIC ACID 1 MG TABLET PO SCH (09:08)
[2018-03-04 09:12] LABS: ARTERIAL BLOOD BASE EXCESS 3.4 mmol/L; ARTERIAL BLOOD H2CO3 1.16 mmol/L (1.05-1.35); ARTERIAL BLOOD HCO3 27.2 mmol/L (20-26); ARTERIAL BLOOD O2 SATURATION 95.3 % (94-98); ARTERIAL BLOOD PCO2 38.7 mmHg (35-45); ARTERIAL BLOOD PH 7.47 (7.35-7.45); ARTERIAL BLOOD TOTAL CO2 28.4 mmol/L (23-27)
[2018-03-04 09:13] LABS: ARTERIAL BLOOD FIO2 30%
[2018-03-04] MEDS ORDERED: POTASSIUM CHLORIDE 20 MEQ/15 ML UDCUP PO ONE (09:30)
[2018-03-04] MEDS ORDERED: LORAZEPAM 1 MG TABLET PO SCH (12:00)
[2018-03-04] MEDS: NORMAL SALINE 1000 ML 1,000 ML with POTASSIUM CHLORIDE 20 MEQ, MAGNESIUM SULFATE 8 MEQ,... IV SCH ×5 (12:12)
--- NOTE | 2018-03-04 12:41 | PROGRESS NOTE E ---
Progress Note NAME: SHILOH VINSON : 1985 AGE: 32Y DATE: 03/04/2018 ROOM: [facility] SUBJECTIVE: The patient is a 32-year-old male who came in with acute respiratory failure requiring invasive mechanical ventilation due to drug overdose reportedly when he came in. The patient has no fever over the last 24 hours. Has decreased endotracheal secretions. Wean off sedation this morning, both Ativan and Versed at 6:00. Appeared to be doing well. Had a spontaneous breathing trial about an hour ago and on pressure support of 10/5 and patient appeared to be tolerating it. His ABG after an hour showed pH of 7.47, PCO2 of 13.7, CO2 and oxygen saturation 95%. No vomiting and no diarrhea overnight. Patient is intubated subsequently. OBJECTIVE: GENERAL: Patient is awake and afebrile and calm. VITAL SIGNS: Temperature is 97.7 with a Tmax of 99.5, blood pressure is 132/76, saturations is 95% on FiO2 of 30% FMV rate of 18. Tidal volume of 500. Pressure support of 10 and PEEP of 5. EYES: No jaundice or pallor. EARS, NOSE, AND THROAT: No ear drainage. Orotracheal tube is in place. NG tube is in place. CHEST AND LUNGS: No wheezing. No rhonchi. No coarse crackles. CARDIOVASCULAR: S1, S2 are distinct. No murmur, gallop, or rub. ABDOMEN: Flabby, positive bowel sounds, soft, nondistended, nontender. EXTREMITIES: No joint swelling or cellulitis. ASSESSMENT: 1. ACUTE RESPIRATORY FAILURE REQUIRING INVASIVE MECHANICAL VENTILATION. 2. PNEUMONIA, MRSA, RIGHT LOWER LOBE. SPUTUM CULTURE POSITIVE FOR MRSA AND ENTEROBACTER, SUSCEPTIBLE TO TETRACYCLINE. 3. HISTORY OF DRUG OVERDOSE. 4. HISTORY OF ALCOHOL ABUSE. PLAN AND RECOMMENDATION: 1. Recommend continuing vancomycin for now, IV and Zosyn IV. will continue the IV Zosyn. 2. Patient will be able to go home on tetracycline orally. 3. Agreed with alcohol withdrawal protocol. Consider ativan 2 mg IV instead of 4 mg IV. DICTATING PHYSICIAN: JAKE COLE MD,KAYY,MPH [id number] PHY#: [id number] ID: [id number] JOB#: [id number] ACCT: [id number] cc: > HARPREETD
--- NOTE | 2018-03-04 15:42 | PSYCHOLOGICAL NOTE ---
Psych Note - Psych Note Psych Note: Reason for Consult:possible overdose Consent for permissions: Mumtaz, mother at patient's bedside, PT ARRIVED VIA EMS D/T POSSIBLE OVERDOSE. REPORT STATES THAT PT TOOK UNKNOWN AMOUT OF [place], WAS FOUND BY FEMALE CO-LIVING WITH PT, PT BREATHING 6 TIMES PER MINUTE, NONRESPONSIVE. PT GIVEN 6MG NARCAN VIA EMS CREW. PT VOMITED ENROUTE TO ED. PT STILL MINIMALLY RESPONSIVE UPON ARRIVAL TO ED. PT MAKING GROANS AT TIMES BUT DOES NOT OPEN EYES NOR OFFER ANY VERBAL RESPONSE. Patient was extubated earlier this morning but still not able to make eye contact, still can't talk or comprehend this Clinician. Patient's mom is bedside and was able to give a report. Mom believes that patient will not want to stay when he wakes up due to his personality. IVC is put in place. Pt. mom's states that her son has been having migraines for awhile, so [facility] and the medication made him feel worse, so then patient would drink. Mom states that then patient could not remember if he took his medicine, as he usually consumes a case a beer a day and mixes in hard liquor at times. Patient has [facility] [place] and the [facility] in [place]. Pt's mom states that on the day of the incident, it was a pretty normal day. They were discussing doing renovations on the house. Mom states that at around 7 :30pm-8:00pm patient went to the store. He returned between 9:30-10pm, as he is usually noisy when he enters the house. She states that she was in her room laying down and she heard the dogs scratching at her bedroom door. She became concerned because the dog never does that so she got up and walked through the house to find patient was on the floor and blue. She called 911 right away. Mom states that patient is a disabled with a 100% disability rating, with PTSD and chronic depression. Mom states that she moved to [place] about 4 years ago to be his caregiver, as patient as soon as he left the . Patient has a 9 year old daughter that he rotates custody each week. Mom states that she notices that her son does not drink during the week that he has his daughter. Patient is not alert at this time. Patient is unable to talk, make eye contact or comprehend this Clinician. Diagnosis: 309.81 (F43.10) Post Traumatic Stress Disorder per Mom 296.20 (F32.9) Major Depressive Disorder per Mom Impression/Plan: Patient is recommended for IVC. Patient was intubated for several days and just extubated today but still unable to communicate with this Clinician. IVC will allow for a re-evaluation in the morning. Dr. Balbuena was consulted and the care and management of this patient; attending physician is in agreement with recommendations and disposition.
[2018-03-05] MEDS: VANCOMYCIN HCL 1,500 MG in DEXTROSE 5%-WATER 250 ML IV SCH ×3 (02:56→21:28)
[2018-03-05] MEDS: PIPERACILLIN SODIUM/TAZOBACTAM 3.375 GM in NORMAL SALINE 100 ML IV SCH ×4 (02:56→23:09)
[2018-03-05] MEDS: LORAZEPAM INJ 2 MG/1 ML VIAL (TAPER DOSING) IV SCH ×2 (02:56→12:10)
[2018-03-05] MEDS: NORMAL SALINE 1000 ML 1,000 ML IV PRN (02:59)
[2018-03-05] MEDS: ENOXAPARIN SODIUM INJ 40 MG/0.4 ML DISP.SYRIN SUBCUT SCH (09:29)
[2018-03-05] MEDS: FOLIC ACID 1 MG TABLET PO SCH (09:29)
[2018-03-05] MEDS: NORMAL SALINE 1000 ML 1,000 ML with POTASSIUM CHLORIDE 20 MEQ, MAGNESIUM SULFATE 8 MEQ,... IV SCH ×5 (11:35)
--- NOTE | 2018-03-05 16:56 | PDOC PROGRESS REPORT ---
Subjective Progress Note for:: 03/05/18 Subjective:: Was extubated yesterday. He is saturating well on room air and his heart rate is 80/min. He was sitting in a chair and appears comfortable. He denies any suicidal or homicidal ideation. Reason For Visit: DRUG OD,INTUBATED Physical Exam Vital Signs: Temp Pulse Resp BP Pulse Ox 98.6 F 73 23 H 138/89 H 94 03/05/18 09:08 03/05/18 09:15 03/05/18 14:08 03/05/18 14:08 03/05/18 14:08 Intake & Output 03/04/18 03/05/18 03/06/18 06:59 06:59 06:59 Intake Total 2046 1823 2159 Output Total 3870 3400 3350 Balance -1824 -1577 -7211 Weight 218 lb 0.595 oz 209 lb 10.554 oz General appearance: PRESENT: no acute distress, cooperative Head exam: PRESENT: atraumatic, normocephalic Eye exam: PRESENT: EOMI. ABSENT: conjunctival injection Ear exam: ABSENT: bleeding, drainage Mouth exam: PRESENT: moist, neck supple Throat exam: ABSENT: post pharyngeal erythema Neck exam: ABSENT: meningismus, tenderness, thyromegaly Respiratory exam: PRESENT: clear to auscultation kelley. ABSENT: accessory muscle use Cardiovascular exam: PRESENT: RRR Pulses: PRESENT: normal radial pulses GI/Abdominal exam: PRESENT: normal bowel sounds, soft. ABSENT: tenderness Extremities exam: ABSENT: pedal edema Musculoskeletal exam: PRESENT: ambulatory Neurological exam: PRESENT: alert, altered, awake, oriented to person, oriented to place, oriented to time, oriented to situation Psychiatric exam: ABSENT: homicidal ideation, suicidal ideation Skin exam: ABSENT: abrasion, cyanosis, erythema, jaundice Results Laboratory Results: 03/04/18 04:32 03/04/18 04:32 02/28/18 02/28/18 02/28/18 05:19 11:10 11:10 Creatine Kinase 1545 H CK-MB (CK-2) 5.20 H Troponin I 0.014 < 0.012 02/28/18 03/04/18 12:00 04:32 Creatine Kinase 215 H CK-MB (CK-2) Troponin I Cancelled Impressions: Chest X-Ray 03/03/18 20:00 IMPRESSION: Endotracheal tube with its tip at the level of the thoracic inlet. Interval improvement in the right basilar density. Other findings as noted above Assessment & Plan - Diagnosis (2) ETOH abuse Is this a current diagnosis for this admission?: Yes (3) Overdose Qualifiers: Encounter type: subsequent encounter Injury intent: intentional self-harm Qualified Code(s): T50.902D - Poisoning by unspecified drugs, medicaments and biological substances, intentional self-harm, subsequent encounter Is this a current diagnosis for this admission?: Yes (4) Respiratory failure Qualifiers: Chronicity: acute Respiratory failure complication: hypoxia Qualified Code(s): J96.01 - Acute respiratory failure with hypoxia Is this a current diagnosis for this admission?: Yes - Plan Summary Plan Summary: Patient was extubated yesterday and doing very well No sign of withdrawal and he is on scheduled Ativan Sputum culture positive for MRSA and Enterobacter Continue IV antibiotics and possibly switching to p.o. tomorrow Can be transferred out of the ICU
--- NOTE | 2018-03-05 17:27 | PSYCHOLOGICAL NOTE ---
Psych Note - Psych Note Psych Note: Reason for Consult:possible overdose Consent for permissions: Mumtaz, mother at patient's bedside, PT ARRIVED VIA EMS D/T POSSIBLE OVERDOSE. REPORT STATES THAT PT TOOK UNKNOWN AMOUT OF [place], WAS FOUND BY FEMALE CO-LIVING WITH PT, PT BREATHING 6 TIMES PER MINUTE, NONRESPONSIVE. PT GIVEN 6MG NARCAN VIA EMS CREW. PT VOMITED ENROUTE TO ED. PT STILL MINIMALLY RESPONSIVE UPON ARRIVAL TO ED. PT MAKING GROANS AT TIMES BUT DOES NOT OPEN EYES NOR OFFER ANY VERBAL RESPONSE. Chart review conducted Attending physician notes patient denies current suicidal homicidal ideation. Patient was transferred referred from ICU to [facility]. No other concerns are noted No medication recommendations at this time Diagnosis: 309.81 (F43.10) Post Traumatic Stress Disorder per Mom 296.20 (F32.9) Major Depressive Disorder per Mom Impression/Plan: Patient is recommended for continued IVC. Patient was intubated for several days and just extubated yesterday. Due to patient flow in the ED, chart review was conducted. Patient will be re-evaluated. Dr. Balbuena was consulted and the care and management of this patient; attending physician is in agreement with recommendations and disposition.
[2018-03-06] MEDS: VANCOMYCIN HCL 1,500 MG in DEXTROSE 5%-WATER 250 ML IV SCH ×2 (02:08→10:19)
[2018-03-06] MEDS: PIPERACILLIN SODIUM/TAZOBACTAM 3.375 GM in NORMAL SALINE 100 ML IV SCH ×2 (03:33→08:57)
[2018-03-06] MEDS: NORMAL SALINE 1000 ML 1,000 ML IV PRN (04:45)
[2018-03-06 06:26] LABS: HEMATOCRIT 41.9 % (37.9-51.0); HEMOGLOBIN 14.6 g/dL (13.5-17.0); MEAN CORPUSCULAR HEMOGLOBIN 31.7 pg (27.0-33.4); MEAN CORPUSCULAR HGB CONC 34.7 g/dL (32.0-36.0); MEAN CORPUSCULAR VOLUME 91 fl (80-97); PLATELET COUNT 302 10^3/uL (150-450); RED BLOOD COUNT 4.59 10^6/uL (4.35-5.55); RED CELL DISTRIBUTION WIDTH 13.9 % (11.5-14.0)
[2018-03-06 06:41] LABS: ANION GAP 14 (5-19); BLOOD UREA NITROGEN 8 mg/dL (7-20); CALCIUM 8.4 mg/dL (8.4-10.2); CARBON DIOXIDE 23 mmol/L (22-30); CHLORIDE 108 mmol/L (98-107); GLUCOSE 91 mg/dL (75-110); POTASSIUM 3.9 mmol/L (3.6-5.0); SODIUM 145.2 mmol/L (137-145)
[2018-03-06] MEDS ORDERED: ACETAMINOPHEN 325 MG TABLET PO PRN (09:01)
--- NOTE | 2018-03-06 10:16 | RADIOLOGY REPORT (SQ) ---
EXAM DESCRIPTION: CHEST 2 VIEWS COMPLETED DATE/TIME: 03/06/2018 9:55 am REASON FOR STUDY: pneumonia COMPARISON: 03/03/2018 EXAM PARAMETERS: NUMBER OF VIEWS: two views TECHNIQUE: Digital Frontal and Lateral radiographic views of the chest acquired. RADIATION DOSE: NA LIMITATIONS: none FINDINGS: LUNGS AND PLEURA: The patient has been extubated. There is persistent perihilar airspace disease. Aeration in the right lung base is improved. MEDIASTINUM AND HILAR STRUCTURES: No masses or contour abnormalities. HEART AND VASCULAR STRUCTURES: Stable in appearance. BONES: No acute findings. HARDWARE: None in the chest. OTHER: No other significant finding. IMPRESSION: Persistent bilateral perihilar airspace disease. Overall findings are significantly imp roved from prior study. The patient has been extubated. TECHNICAL DOCUMENTATION: JOB ID: [id number] [employer]- All Rights Reserved Reading location - IP/workstation name: [email or web address]
[2018-03-06] MEDS: ENOXAPARIN SODIUM INJ 40 MG/0.4 ML DISP.SYRIN SUBCUT SCH ×2 (10:18→10:22)
[2018-03-06] MEDS: FOLIC ACID 1 MG TABLET PO SCH (10:18)
--- NOTE | 2018-03-06 10:38 | PDOC DISCHARGE SUMMARY ---
General - Admit/Disc Date/PCP Admission Date/Primary Care Provider: 02/28/18 01:30 Discharge Date: 03/06/18 - Discharge Diagnosis (2) ETOH abuse Is this a current diagnosis for this admission?: Yes (3) Overdose Is this a current diagnosis for this admission?: Yes (4) Respiratory failure Is this a current diagnosis for this admission?: Yes - Additional Information Resuscitation Status: Full Code Discharge Diet: As Tolerated Discharge Activity: Activity As Tolerated Prescriptions: Doxycycline Hyclate 100 mg PO BID #14 tablet Home Medications: Clomiphene Citrate [Serophene 50 mg Tablet] 50 mg PO DAILY 02/28/18 Clonazepam [Klonopin] 0.5 mg PO BID 02/28/18 Diclofenac Epolamine [Flector] 1 each TP DAILY 02/28/18 Duloxetine HCl [Cymbalta] 30 mg PO DAILY 02/28/18 Duloxetine HCl [Cymbalta] 60 mg PO DAILY 02/28/18 Eszopiclone [Lunesta] 3 mg PO QHS 02/28/18 Nortriptyline HCl [Pamelor] 150 mg PO QHS 02/28/18 Pregabalin [Lyrica 75 mg Capsule] 75 mg PO TID 02/28/18 Tadalafil [Cialis] 20 mg PO DAILYP PRN 02/28/18 Testosterone Cypionate [Depo-Testosterone] 1 ml IM ASDIR PRN 02/28/18 Doxycycline Hyclate 100 mg PO BID #14 tablet 03/06/18 History of Present Illness History of Present Illness: SHILOH VINSON is a 32 year old male with complaint of overdose. He is found apneic at his house next to the pill bottle. He is prescribed Klonopin is some crust right powder around the bottle, suspected cause of patients overdose. They are unsure if this potential narcotic overdose as well this patient did have some pinpoint pupils. He was given at approximately 6 mg of Narcan total. This just caused him to wake up a little bit where he is moaning but otherwise is still requiring bag mask ventilation. He said he did vomit once in the ambulance. On arrival patient is poorly responsive and requiring bag mask ventilation. When we take away manual ventilation and place him on supplemental oxygen his oxygen saturation goes quickly into the 80s and therefore we continue manual ventilation. Patient continues to become lethargic and unresponsive at which point patient was intubated in the ER. Hospital Course Hospital Course: Patient was extubated on March 04 and he did very well after that. X-ray shows bilateral infiltrates suspicious for aspiration pneumonia. He was on IV vancomycin and IV Zosyn during hospitalization. Patient denies any homicidal or suicidal ideation. This was incidental and he did not mean to hurt himself. He has problem with alcohol and he knows it and he promised to seek help and he will stop drinking. Patient is stable for discharge on p.o. doxycycline for 7 days. He is in stable condition he is saturating well on room air. He can follow-up with psychiatry outpatient. Physical Exam Vital Signs: Temp Pulse Resp BP Pulse Ox 98.2 F 65 18 138/92 H 100 03/06/18 07:43 03/06/18 07:43 03/06/18 07:43 03/06/18 07:43 03/06/18 07:43 Intake & Output 03/05/18 03/06/18 03/07/18 06:59 06:59 06:59 Intake Total 1823 4282 Output Total 3400 3800 Balance -1577 482 Weight 209 lb 10.554 oz 201 lb 15.095 oz General appearance: PRESENT: no acute distress, well-developed, well-nourished Head exam: PRESENT: atraumatic, normocephalic Eye exam: PRESENT: conjunctiva pink, EOMI, PERRLA. ABSENT: scleral icterus Neck exam: ABSENT: carotid bruit, JVD, lymphadenopathy, thyromegaly Respiratory exam: PRESENT: clear to auscultation kelley. ABSENT: rales, rhonchi, wheezes Cardiovascular exam: PRESENT: RRR. ABSENT: diastolic murmur, rubs, systolic murmur Pulses: PRESENT: normal radial pulses GI/Abdominal exam: PRESENT: normal bowel sounds, soft. ABSENT: distended, guarding, mass, organolmegaly, rebound, tenderness Extremities exam: PRESENT: full ROM. ABSENT: calf tenderness, clubbing, pedal edema Neurological exam: PRESENT: alert, awake, oriented to person, oriented to place , oriented to time, oriented to situation, CN II-XII grossly intact. ABSENT: motor sensory deficit Psychiatric exam: PRESENT: appropriate affect, normal mood. ABSENT: homicidal ideation, suicidal ideation Results Laboratory Results: 03/06/18 05:53 03/06/18 05:53 03/06/18 03/06/18 05:53 05:53 WBC 11.0 H RBC 4.59 Hgb 14.6 Hct 41.9 MCV 91 MCH 31.7 MCHC 34.7 RDW 13.9 Plt Count 302 Sodium 145.2 H Potassium 3.9 Chloride 108 H Carbon Dioxide 23 Anion Gap 14 BUN 8 Creatinine 0.72 Est GFR ( Amer) > 60 Est GFR (Non-Af Amer) > 60 Glucose 91 Calcium 8.4 02/28/18 02/28/18 02/28/18 05:19 11:10 11:10 Creatine Kinase 1545 H CK-MB (CK-2) 5.20 H Troponin I 0.014 < 0.012 02/28/18 03/04/18 12:00 04:32 Creatine Kinase 215 H CK-MB (CK-2) Troponin I Cancelled Impressions: Chest X-Ray 03/06/18 06:00 IMPRESSION: Persistent bilateral perihilar airspace disease. Overall findings are significantly improved from prior study. The patient has been extubated. Qualifiers - * PATIENT BEING DISCHARGED WITH ANY OF THE FOLLOWING DIAGNOSIS: No
[2018-03-06 10:58] VITALS: BP 133/86
[2018-03-06] MEDS: NORMAL SALINE 1000 ML 1,000 ML with POTASSIUM CHLORIDE 20 MEQ, MAGNESIUM SULFATE 8 MEQ,... IV SCH ×5 (12:10)
--- NOTE | 2018-03-06 13:12 | PSYCHOLOGICAL NOTE ---
Psych Note - Psych Note Psych Note: Reason for Consult:possible overdose Consent for permissions: Mumtaz, mother at patient's bedside, PT ARRIVED VIA EMS D/T POSSIBLE OVERDOSE. REPORT STATES THAT PT TOOK UNKNOWN AMOUT OF [place], WAS FOUND BY FEMALE CO-LIVING WITH PT, PT BREATHING 6 TIMES PER MINUTE, NONRESPONSIVE. PT GIVEN 6MG NARCAN VIA EMS CREW. PT VOMITED ENROUTE TO ED. PT STILL MINIMALLY RESPONSIVE UPON ARRIVAL TO ED. PT MAKING GROANS AT TIMES BUT DOES NOT OPEN EYES NOR OFFER ANY VERBAL RESPONSE. Diagnosis: 309.81 (F43.10) Post Traumatic Stress Disorder per Mom 296.20 (F32.9) Major Depressive Disorder per Mom Impression/Plan: Patient was recommended for continued IVC; however attending hospitalist did not sign exam last night and discharged patient this morning. Clinician spoke to the hospitalist last evening to provide recommendations. The IVC 1st exam was placed in the patient's chart with his IVC petition. Dr. Balbuena was consulted and the care and management of this patient.
== END 2018-03-06 12:40 | disposition home or self-care (01) | DRG 917 ==
LOC: ER 23:52 → EH 02-28 01:30 → ICU 02-28 04:20 → 3S 03-06 01:20
PROVIDERS: ADMIT Family Medicine; ATTEND Family Medicine
PROC: 5A1955Z Respiratory Ventilation, Greater than 96 Consecutive Hours (ICD-10-PCS; principal; 2018-02-28)
PROC: 0BH17EZ Insertion of Endotracheal Airway into Trachea, Via Natural or Artificial Opening (ICD-10-PCS; 2018-02-28)
DX: T42.4X2A Poisoning by benzodiazepines, intentional self-harm, initial encounter (principal); J96.01 Acute respiratory failure with hypoxia; J69.0 Pneumonitis due to inhalation of food and vomit; J15.212 Pneumonia due to Methicillin resistant Staphylococcus aureus; F10.231 Alcohol dependence with withdrawal delirium; F13.20 Sedative, hypnotic or anxiolytic dependence, uncomplicated; E87.0 Hyperosmolality and hypernatremia; F32.9 Major depressive disorder, single episode, unspecified; Y90.6 Blood alcohol level of 120-199 mg/100 ml; Y92.009 Unspecified place in unspecified non-institutional (private) residence as the place of occurrence of the external cause; B95.61 Methicillin susceptible Staphylococcus aureus infection as the cause of diseases classified elsewhere; Z87.891 Personal history of nicotine dependence
CPT/HCPCS: 36415; 51702; 71045; 71046; 80048; 80053; 80307; 81001; 82550; 82553; 82803; 83735; 84478; 84484; 85025; 85027; 85610; 85730; 87040; 87070; 87077; 87086; 87186; 87205; 93005; 93010; 94002; 94003; 94660; 99291; J0330; J0696; J1650; J1956; J2060; J2250; J2543; J2704; J3370; J3411; J3475; J3480; J3490; J7030; J7060; S0164

== ENCOUNTER 2019-03-13 15:51 | Emergency (ER) | payer OTHER ==
[2019-03-13 16:00] VITALS: BP 109/62
--- NOTE | 2019-03-13 17:20 | RADIOLOGY REPORT (SQ) ---
EXAM DESCRIPTION: ANKLE LEFT COMPLETE COMPLETED DATE/TIME: 03/13/2019 5:09 pm REASON FOR STUDY: stepped in hole yesterday, swelling and pain COMPARISON: None. NUMBER OF VIEWS: Three views. TECHNIQUE: AP, lateral, and oblique radiographic images acquired of the left ankle. LIMITATIONS: None. FINDINGS: MINERALIZATION: Normal. BONES: No definite acute fracture dislocation. Corticated ossific densities inferior to the medial m alleolus met possibly related to remote trauma/degenerative. JOINTS: No dislocation. Ankle joint effusion. SOFT TISSUES: Soft tissue swelling about the lateral ankle. OTHER: No other significant finding. IMPRESSION: Soft tissue swelling about the lateral ankle without evidence of acute bony abnormality. TECHNICAL DOCUMENTATION: JOB ID: [id number] [employer]- All Rights Reserved Reading location - IP/workstation name: [email or web address]
[2019-03-13] MEDS ORDERED: IBUPROFEN 800 MG TABLET PO ONE (17:39)
[2019-03-13] MEDS ORDERED: HYDROCODONE/ACETAMINOPHEN 5-325 MG (6 TAB/ER DISP) PO PRN (17:39)
--- NOTE | 2019-03-13 17:40 | ER Document Report ---
HPI - HPI Time Seen by Provider: 03/13/19 17:11 Pain Level: 3 Context: Patient is a 34-year-old male presents to the emergency department with a chief complaint of left ankle pain. Patient states that last night around 6 PM he was walking outside when he stepped into a hole. He is unsure which direction his foot went. Patient states initially he was able to bear weight but when waking up this morning the pain was more significant. Patient states he has had swel ling. Patient denies numbness or tingling to his toes. Patient states he does take ibuprofen. Past Medical History - General Information source: Patient - Social History Smoking Status: Unknown if Ever Smoked Lives with: Alone Family History: Reviewed & Not Pertinent - Past Medical History Cardiac Medical History: Reports: None Pulmonary Medical History: Reports: None EENT Medical History: Reports: None Neurological Medical History: Reports: None Endocrine Medical History: Reports: None Renal/ Medical History: Reports: None. Denies: Hx Peritoneal Dialysis Malignancy Medical History: Reports None GI Medical History: Reports: None Musculoskeletal Medical History: Reports None Skin Medical History: Reports None Psychiatric Medical History: Reports: Hx Depression Traumatic Medical History: Reports: None Infectious Medical History: Reports: None Vertical Provider Document - CONSTITUTIONAL Agree With Documented VS: Yes Exam Limitations: No Limitations General Appearance: No Apparent Distress - INFECTION CONTROL TRAVEL OUTSIDE OF THE [place] IN LAST 30 DAYS: No - HEENT HEENT: Atraumatic, Normocephalic, PERRLA - NECK Neck: Normal Inspection - RESPIRATORY Respiratory: Breath Sounds Normal, No Respiratory Distress - CARDIOVASCULAR Cardiovascular: Regular Rate, Regular Rhythm - GI/ABDOMEN Gastrointestinal: Abdomen Soft, Abdomen Non-Tender, Normal Bowel Sounds - MUSCULOSKELETAL/EXTREMETIES Notes: Swelling noted to the lateral malleolus and lateral dorsal aspect of the left foot. Patient does have tenderness to the medial lateral malleolus. There is a small amount of ecchymosis noted to the lateral foot. Patient has a strong dorsalis pedis and posterior tibial +2 pulse,, patient has less than 2-second cap refill in his toes. - NEURO Level of Consciousness: Awake, Alert, Appropriate - DERM Integumentary: Warm, Dry, No Rash Course - Re-evaluation Re-evalutation: 03/13/19 20:43 Patient does have some soft tissue swelling noted to the lateral foot and ankle. There is no bony abnormality but the patient does have an ankle effusion. This could indicate a tendon or ligament injury. I will put the patient in a ankle stirrup and non-weightbearing instructions. Patient given crutches. I did inform the patient that he is to follow-up with orthopedics. Patient states he does have insurance and should have no problem doing so. - Vital Signs Vital signs: Temp Pulse Resp BP Pulse Ox 98.1 F 93 13 109/62 97 03/13/19 15:58 03/13/19 15:58 03/13/19 15:58 03/13/19 15:58 03/13/19 15:58 - Diagnostic Test Radiology reviewed: Reports reviewed Radiology results interpreted by me: 03/13/19 20:43 Ankle X-Ray 03/13/19 00:00 IMPRESSION: Soft tissue swelling about the lateral ankle without evidence of acute bony abnormality. Discharge - Discharge Clinical Impression: Ankle injury Qualifiers: Encounter type: initial encounter Laterality: left Qualified Code(s): S99.912A - Unspecified injury of left ankle, initial encounter Condition: Stable Disposition: HOME, SELF-CARE Instructions: Ankle Stirrup Splint ([facility]), Use of Crutches ([facility]), Ice & Elevation ([facility]) Additional Instructions: Today you were seen in the emergency department for left ankle injury. Although the x-ray did not show any acute bony abnormality you do have an ankle effusion and significant swelling. I have placed you in a splint and given you crutches. Please not weight-bear. Please follow-up with orthopedics. I am giving you a referral to Dr. Fabian. His office is located in [place] but he does not visit [place] frequently for office visits. Please call him on Monday to schedule an appointment. Although there was no bony abnormality you could have a tendon or ligament injury. Please rest, elevate and ice the ankle. Stirrup Splint You are to use an ankle brace called a stirrup splint. This type of brace allows you to place greater stresses on the ankle without risk of re-injury, and is often used for more severe ankle injuries such as avulsion fractures and ligament ruptures. The splint can be worn over a sock or tape. For proper support, wear the splint with a shoe over it. It's important that the splint fit properly. Adjust the heel tension, if needed. If your splint has air bladders, peel back the bottom of each air bladder, then move the Velcro attachment of the heel strap up or down. Air bladder pressure can be adjusted by pulling up the valve at the top, threading the air tube down into the main bladder, then blowing air into the bladder or squeezing it out. The two sides of the stirrup can be moved forward or back on your ankle by changing the attachment of the main straps. If you are unable to use the ankle comfortably in the splint, return for re-evaluation. Splint Precautions A splint has been placed. This will protect the area while healing begins. Your problem does NOT normally require a cast. It MUST, however, be held still! Keep the splint on ALL THE TIME until instructed to remove it by the doctor. As you begin to use the area, be careful. You shouldn't do anything which causes discomfort -- you may disturb the injury even with the splint in place. After the initial period of rest and elevation, if splint does not prevent pain when you move, come back. You may require placement of a different splint, or a cast. If there is unexpected severe pain, or numbness, discoloration, or swelling beyond the splint, you should return at once. If you feel that the splint has broken or become loose, come back. Referrals: KILEY CHAPMAN MD [Primary Care Provider] - Follow up as needed LAWRENCE FABINA MD [ACTIVE PROVISIONAL STAFF] - Follow up as needed
== END 2019-03-13 17:58 | disposition home or self-care (01) ==
LOC: ER 15:51
DX: S99.912A Unspecified injury of left ankle, initial encounter (principal); S90.30XA Contusion of unspecified foot, initial encounter; M25.572 Pain in left ankle and joints of left foot; M25.473 Effusion, unspecified ankle; M79.89 Other specified soft tissue disorders; X58.XXXA Exposure to other specified factors, initial encounter
CPT/HCPCS: 73610; L1902; 99283

== ENCOUNTER 2020-02-04 19:09 | Emergency (ER) | payer OTHER ==
[2020-02-04] MEDS ORDERED: DIPHENHYDRAMINE HCL 50 MG/ML VIAL IV ONE (19:18)
[2020-02-04] MEDS ORDERED: FAMOTIDINE INJ/PF 20 MG/2 ML SDV IV ONE (19:18)
[2020-02-04] MEDS ORDERED: ONDANSETRON HCL INJ/PF 4 MG/2 ML SDV IV ONE (19:18)
[2020-02-04] MEDS ORDERED: EPINEPHRINE INJ/PF 1 MG/1 ML AMPULE SUBCUT PRN (19:18)
[2020-02-04] MEDS ORDERED: METHYLPREDNISOLONE INJ 125 MG/2 ML SDV IV ONE (19:18)
[2020-02-04] MEDS ORDERED: RINGERS SOLUTION,LACTATED 1,000 ML IV ONE (19:20)
[2020-02-04] MEDS ORDERED: EPINEPHRINE INJ/PF 1 MG/1 ML AMPULE IM ONE (20:08)
--- NOTE | 2020-02-04 22:02 | ER Document Report ---
ED General - General Chief Complaint: Allergic Reaction Stated Complaint: OTHER Time Seen by Provider: 02/04/20 19:18 Primary Care Provider: KILEY CHAPMAN MD [Primary Care Provider] - Follow up as needed Notes: 34-year-old male brought to the emergency department via private vehicle by his mother after being stung by multiple venomous insects either bees or wasps at home. Patient self-administered epinephrine and then he and his mother called 911 [address]. Patient complains of nausea, itching, throat swelling and difficulty breathing. 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 Patient has actually been intubated in the past when he has not had ready access to epinephrine. TRAVEL OUTSIDE OF THE [place] IN LAST 30 DAYS: No - Related Data Allergies/Adverse Reactions: No Known Allergies Allergy (Verified 03/13/19 15:55) Past Medical History - General Information source: Patient, Parent - Social History Smoking Status: Never Smoker Frequency of alcohol use: None Drug Abuse: None Family History: Reviewed & Not Pertinent Neurological Medical History: Reports: Hx Migraine Renal/ Medical History: Denies: Hx Peritoneal Dialysis Musculoskeletal Medical History: Reports Hx Arthritis - shoulder and neck Psychiatric Medical History: Reports: Hx Depression Review of Systems - Review of Systems Constitutional: See HPI, Weakness EENT: See HPI, Throat swelling Cardiovascular: No symptoms reported Respiratory: See HPI, Short of breath Skin: See HPI -: Yes All other systems reviewed and negative Physical Exam - Vital signs Vitals: Temp 97.6 F 02/04/20 19:26 Interpretation: Hypertensive, Tachycardic, Tachypneic - Notes Notes: GENERAL: Slumped over in a wheelchair, able to grunt in response, appears ill. Very flushed. HEAD: Normocephalic, atraumatic EYES: Pupils equal, round and reactive to light, extraocular movements intact. ENT: Oral mucosa moist, tongue midline. Nares patent, no nasal septal hematoma, TMs intact. No swelling of the oral mucosa. NECK: Full range of motion, supple, trachea midline. LUNGS: Clear to auscultation bilaterally, no wheezes, rales or rhonchi, quite tachypneic. HEART: Tachycardic rate and rhythm, no murmurs, gallops, rubs. ABDOMEN: Soft, nontender, nondistended, bowel sounds present in all 4 quadrants. EXTREMITIES: Moves all 4 extremities spontaneously, no edema, radial and dorsalis pedis pulses 2/4 bilaterally. No cyanosis. NEUROLOGICAL: Alert and oriented x3. PSYCH: Very anxious. SKIN: Hot, flushed, urticarial lesions noted to the webspace of the left hand, left torso in the midaxillary line, right hand. Small urticarial lesions noted across the torso. Course - Re-evaluation Re-evalutation: 02/04/20 22:01 Immediately placed in a bed, given 0.3 mg of epinephrine IM, also given Pepcid, Benadryl and Solu-Medrol as well as a liter of lactated Ringer's. Patient had some improvement in symptoms but then developed nausea and gagging as well as complaints of increased difficulty breathing, complaints of throat swelling so he was given a second dose of epinephrine 0.3 mg IM approximately 1 hour after initial ED treatment of anaphylaxis. Patient has now been observed for just under 2 hours since the second ER dose, third total dose of epinephrine was given. Patient has had no further swelling, patient is no longer flushed, there are no longer any hives, has no difficulty breathing and no nausea. Anaphylactic reaction appears to have resolved. Patient will be discharged to home with Pepcid and Benadryl as needed for symptomatic treatment. Strict instructions on return if he develops any difficulty breathing. - Vital Signs Vital signs: Temp Pulse Resp BP Pulse Ox 97.6 F 118 H 25 H 152/92 H 100 02/04/20 19:27 02/04/20 19:27 02/04/20 19:27 02/04/20 19:27 02/04/20 19:27 Critical Care Note - Critical Care Note Total time excluding time spent on procedures (mins): 80 Discharge - Discharge Clinical Impression: Anaphylaxis Qualifiers: Encounter type: initial encounter Qualified Code(s): T78.2XXA - Anaphylactic shock, unspecified, initial encounter Condition: Stable Disposition: HOME, SELF-CARE Additional Instructions: If you develop localized itching you may take Pepcid 20 mg every 6 hours and Benadryl 1 to 2 tablets of the [id number] strength every 6 hours to help with any itching. If you develop any difficulty breathing please give yourself epinephrine and return immediately to the emergency department. Prescriptions: Epinephrine 0.3 mg IJ PRN PRN #1 [email or web address] PRN Reason: allergic reaction Referrals: KILEY CHAPMAN MD [Primary Care Provider] - Follow up as needed
[2020-02-04 22:30] VITALS: BP 127/73
== END 2020-02-04 22:40 | disposition home or self-care (01) ==
LOC: ER 19:09
DX: T63.91XA Toxic effect of contact with unspecified venomous animal, accidental (unintentional), initial encounter (principal); T78.2XXA Anaphylactic shock, unspecified, initial encounter; X58.XXXA Exposure to other specified factors, initial encounter
CPT/HCPCS: 99284; 96361; 96374; 96375; J1200; J0171; J2930; J2405; J7120; S0028